=== PATIENT | male | born 1960 | race Caucasian/White ===

== ENCOUNTER 2023-01-18 13:54 | Emergency (ER) | payer MEDICARE, BC ==
[2023-01-18 15:18] LABS: Anisocytosis Slight; Basophils % (A) 0 %; Eosinophils # (A) 0.2 k/uL (0-0.7); Eosinophils % (A) 2 %; HCT 30.3 % (39.0-53.0); Hypochromasia Slight; Lymphocytes # (A) 0.7 k/uL (1.0-4.8); Lymphocytes % (A) 7 %; MCHC 33.1 g/dL (31.0-37.0); MCV 90.6 fL (80.0-100.0); Mean Platelet Volume 8.5; Monocytes # (A) 0.6 k/uL (0-1.0); Monocytes % (A) 7 %; Neutrophils # (A) 7.8 k/uL (1.3-7.7); Neutrophils % (A) 83 %; Platelet Count 136 k/uL (150-450); RBC 3.34 m/uL (4.30-5.90); RDW 16.1 % (11.5-15.5); WBC 9.4 k/uL (3.8-10.6)
--- NOTE | 2023-01-18 15:22 | ED ---
Abdominal Pain HPI - General Chief Complaint: Abdominal Pain Stated Complaint: constipation Time Seen by Provider: 01/18/23 14:30 Source: patient Mode of arrival: ambulatory Limitations: no limitations - History of Present Illness Initial Comments: 62-year-old male presents to ED with a chief complaint of rectal pain. Patient states has not had a bowel movement past 2 days. States that he feels stool in his rectum and tries to push but it just "will not come out". States that he stuck his finger up his butt and felt a large stool impaction. Denies abdominal pain, nausea, vomiting. Denies chest pain or shortness of breath. No other complaints. - Related Data Allergies Allergy/AdvReac Type Severity Reaction Status Date / Time No Known Allergies Allergy Verified 01/18/23 13:59 Review of Systems ROS Statement: Those systems with pertinent positive or pertinent negative responses have been documented in the HPI. ROS Other: All systems not noted in ROS Statement are negative. Past Medical History Past Medical History: Dialysis, Hypertension Additional Past Medical History / Comment(s): cx, constipation History of Any Multi-Drug Resistant Organisms: None Reported Past Surgical History: Cholecystectomy Additional Past Surgical History / Comment(s): cx sugery - lots of organs and surgery to remove cx. Past Psychological History: No Psychological Hx Reported Smoking Status: Never smoker Past Alcohol Use History: None Reported Past Drug Use History: None Reported General Exam Limitations: no limitations General appearance: alert, in no apparent distress Neck exam: Present: normal inspection Respiratory exam: Present: normal lung sounds bilaterally Cardiovascular Exam: Present: regular rate, normal rhythm GI/Abdominal exam: Present: soft (No Tenderness to palpation. No rebound guarding or rigidity.) Rectal exam: Present: hemorrhoids (Nonthrombosed external hemorrhoid.), other (Nonthrombosed external hemorrhoid. Digital examination did reveal a fecal impaction impaction rectal vault.) Neurological exam: Present: alert, oriented X3 Skin exam: Present: warm, dry Course Vital Signs 01/18/23 13:55 Temperature 98.3 F Pulse Rate 97 Respiratory 20 Rate Blood Pressure 143/86 O2 Sat by Pulse 100 Oximetry Medical Decision Making - Medical Decision Making Was pt. sent in by a medical professional or institution (, PA, HANDBAG FINISHER, urgent care, hospital, or [facility]...) When possible be specific @ -No Did you speak to anyone other than the patient for history (EMS, parent, family, police, friend...)? What history was obtained from this source @ -No Did you review nursing and triage notes (agree or disagree)? Why? @ -I reviewed and agree with nursing and triage notes Were old charts reviewed (outside hosp., previous admission, EMS record, old EKG, old radiological studies, urgent care reports/EKG's, [facility] records)? Report findings @ -No old charts were reviewed Differential Diagnosis (chest pain, altered mental status, abdominal pain women, abdominal pain men, vaginal bleeding, weakness, fever, dyspnea, syncope, headache, dizziness, GI bleed, back pain, seizure, CVA, palpatations, mental health, musculoskeletal)? @ -Differential Abdominal Pain Men: Appendicitis, cholecystitis, diverticulosis, ischemic bowel, pancreatitis, hepatitis, UTI, gastroenteritis, AAA, incarcerated hernia, bowel obstruction, constipation, inflammatory bowel, hepatitis, peptic ulcer disease, splenic infarction, perforated viscus, testicular torsion, this is not meant to be an all-inclusive list EKG interpreted by me (3pts min.). @ -None X-rays interpreted by me (1pt min.). @ -None done CT interpreted by me (1pt min.). @ -None done U/S interpreted by me (1pt. min.). @ -None done What testing was considered but not performed or refused? (CT, X-rays, U/S, labs )? Why? @ -None What meds were considered but not given or refused? Why? @ -None Did you discuss the management of the patient with other professionals (professionals i.e. , PA, HANDBAG FINISHER, lab, RT, psych nurse, director of social services, shell worker, teacher, principal gifts officer, porter sample case)? Give summary @ -No Was smoking cessation discussed for >3mins.? @ -No Was critical care preformed (if so, how long)? @ -No Were there social determinants of health that impacted care today? How? (Homelessness, low income, unemployed, alcoholism, drug addiction, transportation, low edu. Level, literacy, decrease access to med. care, group home, rehab)? @ -No Was there de-escalation of care discussed even if they declined (Discuss DNR or withdrawal of care, Hospice)? DNR status @ -No What co-morbidities impacted this encounter? (DM, HTN, Smoking, COPD, CAD, Cancer, CVA, ARF, Chemo, Hep., AIDS, mental health diagnosis, sleep apnea, morbid obesity)? @ -None Was patient admitted / discharged? Hospital course, mention meds given and route, prescriptions, significant lab abnormalities, going to OR and other pertinent info. @ -Discharge 62-year-old male presenting to the ED with a chief complaint of constipation and rectal pain. Laboratory studies are consistent with history of chronic kidney disease, Otherwise unremarkable. Exam showed fecal impaction nonthrombosed external hemorrhoid. Patient provided enema here. Patient successfully passage stool. Of note, patient was here 5 days ago after swallowing a plastic bottle cap. Patient did pass this during this bowel movement. Patient reports all symptoms resolved after this and would like to go home. Patient discharged home in stable condition. Discussed return precautions patient who verbalizes agreement. Undiagnosed new problem with uncertain prognosis? @ -No Drug Therapy requiring intensive monitoring for toxicity (Heparin, Nitro, Insulin, Cardizem)? @ -No Were any procedures done? @ -No Diagnosis/symptom? @ -Constipation/fecal impaction Acute, or Chronic, or Acute on Chronic? @ -Acute Uncomplicated (without systemic symptoms) or Complicated (systemic symptoms)? @ -Uncomplicated Side effects of treatment? @ -No Exacerbation, Progression, or Severe Exacerbation? @ -No Poses a threat to life or bodily function? How? (Chest pain, [place], [place], pneumonia, PE, COPD, DKA, ARF, appy, cholecystitis, CVA, Diverticulitis, Homicidal, Suicidal, threat to staff... and all critical care pts) @ -No - Lab Data Result diagrams: 01/18/23 15:06 01/18/23 15:06 Lab Results 01/18/23 01/18/23 Range/Units 15:06 15:06 WBC 9.4 (3.8-10.6) k/uL RBC 3.34 L (4.30-5.90) m/uL Hgb 10.0 L (13.0-17.5) gm/dL Hct 30.3 L (39.0-53.0) % MCV 90.6 (80.0-100.0) fL MCH 30.0 (25.0-35.0) pg MCHC 33.1 (31.0-37.0) g/dL RDW 16.1 H (11.5-15.5) % Plt Count 136 L (150-450) k/uL MPV 8.5 Neutrophils % 83 % Lymphocytes % 7 % Monocytes % 7 % Eosinophils % 2 % Basophils % 0 % Neutrophils # 7.8 H (1.3-7.7) k/uL Lymphocytes # 0.7 L (1.0-4.8) k/uL Monocytes # 0.6 (0-1.0) k/uL Eosinophils # 0.2 (0-0.7) k/uL Basophils # 0.0 (0-0.2) k/uL Hypochromasia Slight Anisocytosis Slight Sodium 134 L (137-145) mmol/L Potassium 4.0 (3.5-5.1) mmol/L Chloride 92 L (98-107) mmol/L Carbon Dioxide 34 H (22-30) mmol/L Anion Gap 8 mmol/L BUN 17 (9-20) mg/dL Creatinine 4.71 H (0.66-1.25) mg/dL Est GFR (CKD-EPI)AfAm 14 (>60 ml/min/1.73 sqM) Est GFR (CKD-EPI)NonAf 12 (>60 ml/min/1.73 sqM) Glucose 81 (74-99) mg/dL Calcium 9.5 (8.4-10.2) mg/dL Total Bilirubin 0.9 (0.2-1.3) mg/dL AST 15 L (17-59) U/L ALT 11 (4-49) U/L Alkaline Phosphatase 64 (38-126) U/L Total Protein 6.2 L (6.3-8.2) g/dL Albumin 3.6 (3.5-5.0) g/dL Amylase <30 L (30-110) U/L Lipase 80 (23-300) U/L Disposition Clinical Impression: Fecal impaction in rectum Disposition: HOME SELF-CARE Condition: Good Instructions (If sedation given, give patient instructions): Constipation (ED), High Fiber Diet (ED) Additional Instructions: Please return to the Emergency Department if symptoms worsen or any other concerns. Is patient prescribed a controlled substance at d/c from ED?: No Referrals: None,Stated [Primary Care Provider] - 1-2 days Time of Disposition: 16:25
[2023-01-18 15:32] LABS: ALT 11 U/L (4-49); AST 15 U/L (17-59); African American GFR (CKD) 14 (>60 ml/min/1.73 sqM); Albumin 3.6 g/dL (3.5-5.0); Alkaline Phosphatase 64 U/L (38-126); Amylase <30 U/L (30-110); Anion Gap 8 mmol/L; Blood Urea Nitrogen 17 mg/dL (9-20); Calcium 9.5 mg/dL (8.4-10.2); Carbon Dioxide 34 mmol/L (22-30); Chloride 92 mmol/L (98-107); Glucose 81 mg/dL (74-99); Lipase 80 U/L (23-300); Non-African American GFR(CKD) 12 (>60 ml/min/1.73 sqM); Sodium 134 mmol/L (137-145); Total Bilirubin 0.9 mg/dL (0.2-1.3); Total Protein 6.2 g/dL (6.3-8.2)
[2023-01-18 15:33] VITALS: BP 143/86; PULSE 97; RESP 20; TEMP 98.3
== END 2023-01-18 16:49 | disposition home or self-care (01) ==
LOC: EC 13:54
DX: K56.41 Fecal impaction (principal); I10 Essential (primary) hypertension; Z90.49 Acquired absence of other specified parts of digestive tract; Z99.2 Dependence on renal dialysis
CPT/HCPCS: 36415; 80053; 82150; 83690; 85025; 99284

== ENCOUNTER 2023-03-04 14:42 | Emergency (ER) | payer MEDICARE ==
[2023-03-04 15:11] VITALS: RESP 16; TEMP 98.4
[2023-03-04 15:25] LABS: Anisocytosis Slight; Basophils % (A) 0 %; Eosinophils # (A) 0.1 k/uL (0-0.7); Eosinophils % (A) 2 %; HCT 25.9 % (39.0-53.0); HGB 8.6 gm/dL (13.0-17.5); Hypochromasia Slight; Lymphocytes # (A) 0.6 k/uL (1.0-4.8); Lymphocytes % (A) 9 %; MCH 31.3 pg (25.0-35.0); MCHC 33.1 g/dL (31.0-37.0); MCV 94.5 fL (80.0-100.0); Mean Platelet Volume 8.1; Monocytes # (A) 0.5 k/uL (0-1.0); Monocytes % (A) 8 %; Neutrophils # (A) 5.6 k/uL (1.3-7.7); Neutrophils % (A) 80 %; Platelet Count 110 k/uL (150-450); RBC 2.74 m/uL (4.30-5.90); RDW 17.6 % (11.5-15.5)
[2023-03-04 15:34] VITALS: PULSE 86
[2023-03-04 15:36] LABS: ALT 9 U/L (4-49); AST 16 U/L (17-59); African American GFR (CKD) 19 (>60 ml/min/1.73 sqM); Albumin 3.8 g/dL (3.5-5.0); Alkaline Phosphatase 66 U/L (38-126); Blood Urea Nitrogen 19 mg/dL (9-20); Calcium 9.4 mg/dL (8.4-10.2); Chloride 90 mmol/L (98-107); Glucose 86 mg/dL (74-99); Magnesium 2.1 mg/dL (1.6-2.3); Non-African American GFR(CKD) 17 (>60 ml/min/1.73 sqM); Phosphorus 3.2 mg/dL (2.5-4.5); Potassium 4.1 mmol/L (3.5-5.1); Sodium 138 mmol/L (137-145); Total Bilirubin 0.9 mg/dL (0.2-1.3); Total Protein 6.4 g/dL (6.3-8.2)
[2023-03-04 15:42] LABS: Anion Gap 12 mmol/L
--- NOTE | 2023-03-04 15:49 | XR ---
EXAMINATION TYPE: XR chest 2V DATE OF EXAM: 03/04/2023 3:44 PM COMPARISON: Acute abdominal series 01/13/2023 TECHNIQUE: XR chest 2V Frontal and lateral views of the chest. CLINICAL INDICATION:Male, 62 years old with history of dysrhythmia; FINDINGS: Lungs/Pleura: Blunting of the left costophrenic angle. No focal consolidation or pneumothorax. Pulmonary vascularity: Pulmonary vascular congestion. Heart/mediastinum: Cardiomediastinal silhouette is prominent in size. Musculoskeletal: No acute osseous pathology. Other: Residual high-density material within the colon possibly prior enteric contrast. IMPRESSION: Trace right and small left pleural effusions with atelectasis. Mild pulmonary vascular congestion.
[2023-03-04 15:50] LABS: Carbon Dioxide 36 mmol/L (22-30)
--- NOTE | 2023-03-04 16:11 | ED ---
Arrhythmia/Palpitations HPI - General Chief Complaint: Arrhythmia/Palpitations Stated Complaint: Tachycardia Time Seen by Provider: 03/04/23 14:50 Source: patient Mode of arrival: EMS Limitations: no limitations - History of Present Illness Initial Comments: 62 year old male presents to ED with tachycardia. Patient was finishing up dialysis when he had palpitations. His vitals were taken and HR found to be in the 140-160s. HE felt as if they abdoul too much fluid off of him so he asked them to flush him back. He states when they did, his symptoms resolved. Patient did not want to come to the hospital but it was recommended. EMS found the patient to have a normal sinus rhythm. Patient denies history of irregular heart rhythms. He denies having chest pain. - Related Data Allergies Allergy/AdvReac Type Severity Reaction Status Date / Time No Known Allergies Allergy Verified 01/18/23 13:59 Review of Systems ROS Statement: Those systems with pertinent positive or pertinent negative responses have been documented in the HPI. ROS Other: All systems not noted in ROS Statement are negative. Past Medical History Past Medical History: Dialysis, Hypertension, Renal Disease Additional Past Medical History / Comment(s): cx, constipation History of Any Multi-Drug Resistant Organisms: None Reported Past Surgical History: Bowel Resection, Cholecystectomy Additional Past Surgical History / Comment(s): cx sugery - lots of organs and surgery to remove cx. nephrectomy , cystectomy. Past Psychological History: No Psychological Hx Reported Smoking Status: Never smoker Past Alcohol Use History: None Reported Past Drug Use History: None Reported, Marijuana General Exam Limitations: no limitations General appearance: alert, in no apparent distress Head exam: Present: atraumatic, normocephalic, normal inspection Eye exam: Present: normal appearance, PERRL, EOMI. Absent: scleral icterus, conjunctival injection, periorbital swelling ENT exam: Present: normal exam, mucous membranes moist Neck exam: Present: normal inspection. Absent: tenderness, meningismus, lymphadenopathy Respiratory exam: Present: normal lung sounds bilaterally. Absent: respiratory distress, wheezes, rales, rhonchi, stridor Cardiovascular Exam: Present: regular rate, normal rhythm, normal heart sounds. Absent: systolic murmur, diastolic murmur, rubs, gallop, clicks GI/Abdominal exam: Present: soft, normal bowel sounds. Absent: distended, tenderness, guarding, rebound, rigid Extremities exam: Present: full ROM, normal capillary refill, other (dialysis fistula rue with cannulas still in place). Absent: tenderness, pedal edema, joint swelling, calf tenderness Back exam: Present: normal inspection Neurological exam: Present: alert, oriented X3, CN II-XII intact Psychiatric exam: Present: normal affect, normal mood Skin exam: Present: warm, dry, intact, normal color. Absent: rash Course Vital Signs 03/04/23 03/04/23 03/04/23 14:48 14:54 15:26 Temperature 98.4 F Pulse Rate 82 85 Pulse Rate [ 86 Side Boss ] Respiratory 16 16 Rate Blood Pressure 170/96 179/96 O2 Sat by Pulse 98 98 Oximetry 03/04/23 17:04 Temperature Pulse Rate 86 Pulse Rate [ Side Boss ] Respiratory 16 Rate Blood Pressure 160/106 O2 Sat by Pulse 98 Oximetry Medical Decision Making - Medical Decision Making Was pt. sent in by a medical professional or institution (, PA, LEVERMAN, urgent care, hospital, or chcf...) When possible be specific @ -dialysis clinic Did you speak to anyone other than the patient for history (EMS, parent, family, police, friend...)? What history was obtained from this source @ -EMS Did you review nursing and triage notes (agree or disagree)? Why? @ -I reviewed and agree with nursing and triage notes Were old charts reviewed (outside hosp., previous admission, EMS record, old EKG, old radiological studies, urgent care reports/EKG's, [facility] records)? Report findings @ -No Differential Diagnosis (chest pain, altered mental status, abdominal pain women, abdominal pain men, vaginal bleeding, weakness, fever, dyspnea, syncope, headache, dizziness, GI bleed, back pain, seizure, CVA, palpatations, mental health, musculoskeletal)? @ -svt, sinus tachycardia, afib, aflutter, vtach EKG interpreted by me (3pts min.). @ -yes and demonstrates sinus rhythm with rate of 82. RI interval 181. QRS 106. QTC of 423. No acute segment elevations or depressions X-rays interpreted by me (1pt min.). @ -yes, no acute process CT interpreted by me (1pt min.). @ -None done U/S interpreted by me (1pt. min.). @ -none done What testing was considered but not performed or refused? (CT, X-rays, U/S, labs)? Why? @ -none What meds were considered but not given or refused? Why? @ -None Did you discuss the management of the patient with other professionals (professionals i.e. , PA, LEVERMAN, lab, RT, psych nurse, social media intern, mud jack operator, teacher, loans officer, case resource manager)? Give summary @ -No Was smoking cessation discussed for >3mins.? @ -No Was critical care preformed (if so, how long)? @ -No Were there social determinants of health that impacted care today? How? (Homelessness, low income, unemployed, alcoholism, drug addiction, transportation, low edu. Level, literacy, decrease access to med. care, halfway, rehab)? @ -No Was there de-escalation of care discussed even if they declined (Discuss DNR or withdrawal of care, Hospice)? DNR status @ -No What co-morbidities impacted this encounter? (DM, HTN, Smoking, COPD, CAD, Cancer, CVA, ARF, Chemo, Hep., AIDS, mental health diagnosis, sleep apnea, morbid obesity)? @ -esrd on hd Was patient admitted / discharged? Hospital course, mention meds given and route, prescriptions, significant lab abnormalities, going to OR and other pe rtinent info. @ -Discharged, labs negative. offered admission for monitoring but patient adamantly wants to go home. Undiagnosed new problem with uncertain prognosis? @ -yes Drug Therapy requiring intensive monitoring for toxicity (Heparin, Nitro, Insulin, Cardizem)? @ -No Were any procedures done? @ -No Diagnosis/symptom? @ -acute palpitations, esrd on hd Acute, or Chronic, or Acute on Chronic? @ -acute Uncomplicated (without systemic symptoms) or Complicated (systemic symptoms)? @ -complicated Side effects of treatment? @ -No Exacerbation, Progression, or Severe Exacerbation? @ -No Poses a threat to life or bodily function? How? (Chest pain, [place], [place], pneumonia, PE, COPD, DKA, ARF, appy, cholecystitis, CVA, Diverticulitis, Homicidal, Suicidal, threat to staff... and all critical care pts) @ -Low likelihood - Lab Data Result diagrams: 03/04/23 14:59 03/04/23 14:59 Lab Results 03/04/23 03/04/23 03/04/23 Range/Units 14:59 14:59 14:59 WBC 7.0 (3.8-10.6) k/uL RBC 2.74 L (4.30-5.90) m/uL Hgb 8.6 L (13.0-17.5) gm/dL Hct 25.9 L (39.0-53.0) % MCV 94.5 (80.0-100.0) fL MCH 31.3 (25.0-35.0) pg MCHC 33.1 (31.0-37.0) g/dL RDW 17.6 H (11.5-15.5) % Plt Count 110 L (150-450) k/uL MPV 8.1 Neutrophils % 80 % Lymphocytes % 9 % Monocytes % 8 % Eosinophils % 2 % Basophils % 0 % Neutrophils # 5.6 (1.3-7.7) k/uL Lymphocytes # 0.6 L (1.0-4.8) k/uL Monocytes # 0.5 (0-1.0) k/uL Eosinophils # 0.1 (0-0.7) k/uL Basophils # 0.0 (0-0.2) k/uL Hypochromasia Slight Anisocytosis Slight PT 11.0 (10.0-12.5) sec INR 1.0 (<1.2) APTT 24.0 (22.0-30.0) sec Sodium 138 (137-145) mmol/L Potassium 4.1 (3.5-5.1) mmol/L Chloride 90 L (98-107) mmol/L Carbon Dioxide 36 H (22-30) mmol/L Anion Gap 12 mmol/L BUN 19 (9-20) mg/dL Creatinine 3.65 H (0.66-1.25) mg/dL Est GFR (CKD-EPI)AfAm 19 (>60 ml/min/1.73 sqM) Est GFR (CKD-EPI)NonAf 17 (>60 ml/min/1.73 sqM) Glucose 86 (74-99) mg/dL Calcium 9.4 (8.4-10.2) mg/dL Phosphorus 3.2 (2.5-4.5) mg/dL Magnesium 2.1 (1.6-2.3) mg/dL Total Bilirubin 0.9 (0.2-1.3) mg/dL AST 16 L (17-59) U/L ALT 9 (4-49) U/L Alkaline Phosphatase 66 (38-126) U/L Troponin I (0.000-0.034) ng/mL Total Protein 6.4 (6.3-8.2) g/dL Albumin 3.8 (3.5-5.0) g/dL 03/04/23 Range/Units 14:59 WBC (3.8-10.6) k/uL RBC (4.30-5.90) m/uL Hgb (13.0-17.5) gm/dL Hct (39.0-53.0) % MCV (80.0-100.0) fL MCH (25.0-35.0) pg MCHC (31.0-37.0) g/dL RDW (11.5-15.5) % Plt Count (150-450) k/uL MPV Neutrophils % % Lymphocytes % % Monocytes % % Eosinophils % % Basophils % % Neutrophils # (1.3-7.7) k/uL Lymphocytes # (1.0-4.8) k/uL Monocytes # (0-1.0) k/uL Eosinophils # (0-0.7) k/uL Basophils # (0-0.2) k/uL Hypochromasia Anisocytosis PT (10.0-12.5) sec INR (<1.2) APTT (22.0-30.0) sec Sodium (137-145) mmol/L Potassium (3.5-5.1) mmol/L Chloride (98-107) mmol/L Carbon Dioxide (22-30) mmol/L Anion Gap mmol/L BUN (9-20) mg/dL Creatinine (0.66-1.25) mg/dL Est GFR (CKD-EPI)AfAm (>60 ml/min/1.73 sqM) Est GFR (CKD-EPI)NonAf (>60 ml/min/1.73 sqM) Glucose (74-99) mg/dL Calcium (8.4-10.2) mg/dL Phosphorus (2.5-4.5) mg/dL Magnesium (1.6-2.3) mg/dL Total Bilirubin (0.2-1.3) mg/dL AST (17-59) U/L ALT (4-49) U/L Alkaline Phosphatase (38-126) U/L Troponin I 0.020 (0.000-0.034) ng/mL Total Protein (6.3-8.2) g/dL Albumin (3.5-5.0) g/dL Disposition Clinical Impression: Palpitations Disposition: HOME SELF-CARE Condition: Stable Instructions (If sedation given, give patient instructions): Heart Palpitations (ED) Additional Instructions: Return to your regularly scheduled dialysis. Return for any new or worsening symptoms Is patient prescribed a controlled substance at d/c from ED?: No Referrals: Danielle Rodriguez DO [Primary Care Provider] - 1-2 days Time of Disposition: 16:10
[2023-03-04 17:22] VITALS: BP 160/106
== END 2023-03-04 17:20 | disposition home or self-care (01) ==
LOC: EC 14:42
DX: R00.2 Palpitations (principal); I12.0 Hypertensive chronic kidney disease with stage 5 chronic kidney disease or end stage renal disease; N18.6 End stage renal disease; F12.90 Cannabis use, unspecified, uncomplicated; Z99.2 Dependence on renal dialysis
CPT/HCPCS: 36415; 71046; 80053; 83735; 84100; 84484; 85025; 85610; 85730; 93005; 99285

== ENCOUNTER 2023-04-30 08:33 | Emergency (ER) | payer MEDICARE, BC ==
[2023-04-30 09:06] VITALS: TEMP 98.2
--- NOTE | 2023-04-30 09:25 | ED ---
General Adult HPI - General Chief complaint: Shortness of Breath Stated complaint: SOB Time Seen by Provider: 04/30/23 08:48 Source: patient, RN notes reviewed Mode of arrival: ambulatory Limitations: no limitations - History of Present Illness Initial comments: 62-year-old male presents emergency Department with chief complaint of cough. Patient states that he's had increasing cough last week or more. He states he initially about is from his blood pressure or blood pressure meds. He states that he is tried some medications with no resolution of his symptoms. Patient states that he has gallbladder out March he did have some fluid left in [facility] after but states that he goes to dialysis 3 times a week has not missed any days and states that he's had no significant fluid removed. Patient denies any reports fever he states that he gets worse when he lays down he states he felt like he was suffocating from something in his lungs. - Related Data Previous Rx's Medication Instructions Recorded Azithromycin [Zithromax Z Pack] 0 tab PO DIRECTED #6 tab 04/30/23 Allergies Allergy/AdvReac Type Severity Reaction Status Date / Time No Known Allergies Allergy Verified 04/30/23 08:47 Review of Systems ROS Statement: Those systems with pertinent positive or pertinent negative responses have been documented in the HPI. ROS Other: All systems not noted in ROS Statement are negative. Past Medical History Past Medical History: Dialysis, Hypertension, Renal Disease Additional Past Medical History / Comment(s): cx, constipation History of Any Multi-Drug Resistant Organisms: None Reported Past Surgical History: Bowel Resection, Cholecystectomy Additional Past Surgical History / Comment(s): cx sugery - lots of organs and surgery to remove cx. nephrectomy , cystectomy. Past Psychological History: No Psychological Hx Reported Smoking Status: Never smoker Past Alcohol Use History: None Reported Past Drug Use History: None Reported, Marijuana General Exam Limitations: no limitations General appearance: alert, in no apparent distress Head exam: Present: atraumatic, normocephalic, normal inspection Eye exam: Present: normal appearance, PERRL, EOMI. Absent: scleral icterus, conjunctival injection, periorbital swelling ENT exam: Present: normal exam, normal oropharynx, mucous membranes moist, TM's normal bilaterally Neck exam: Present: normal inspection, full ROM. Absent: tenderness, meningismus, lymphadenopathy Respiratory exam: Present: normal lung sounds bilaterally. Absent: respiratory distress, wheezes, rales, rhonchi, stridor Cardiovascular Exam: Present: regular rate, normal rhythm, normal heart sounds. Absent: systolic murmur, diastolic murmur, rubs, gallop, clicks Course Vital Signs 04/30/23 04/30/23 04/30/23 08:43 09:31 10:47 Temperature 98.2 F 98.2 F Pulse Rate 88 84 Respiratory 20 18 18 Rate Blood Pressure 172/98 161/97 O2 Sat by Pulse 96 95 Oximetry 04/30/23 11:45 Temperature 98.2 F Pulse Rate 82 Respiratory 18 Rate Blood Pressure 157/91 O2 Sat by Pulse 96 Oximetry Medical Decision Making - Medical Decision Making Was pt. sent in by a medical professional or institution (, PA, GREEN END DEPARTMENT SUPERVISOR, urgent care, hospital, or [facility]...) When possible be specific @ -No Did you speak to anyone other than the patient for history (EMS, parent, family, police, friend...)? What history was obtained from this source @ -No Did you review nursing and triage notes (agree or disagree)? Why? @ -I reviewed and agree with nursing and triage notes Were old charts reviewed (outside hosp., previous admission, EMS record, old EKG, old radiological studies, urgent care reports/EKG's, [facility] records)? Report findings @ -Reviewed prior laboratory studies Differential Diagnosis (chest pain, altered mental status, abdominal pain women, abdominal pain men, vaginal bleeding, weakness, fever, dyspnea, syncope, headache, dizziness, GI bleed, back pain, seizure, CVA, palpatations, mental health, musculoskeletal)? @ -COVID 19, RSV, influenza, pneumonia, acute bronchitis, URI, this list is not all inclusive EKG interpreted by me (3pts min.). @ -None X-rays interpreted by me (1pt min.). @ -Chest x-ray shows trace pleural effusion, evidence of atypical pneumonia CT interpreted by me (1pt min.). @ -None done U/S interpreted by me (1pt. min.). @ -None done What testing was considered but not performed or refused? (CT, X-rays, U/S, labs)? Why? @ -None What meds were considered but not given or refused? Why? @ -None Did you discuss the management of the patient with other professionals (professionals i.e. , PA, GREEN END DEPARTMENT SUPERVISOR, lab, RT, psych nurse, social work professor, windows systems administrator, teacher, retail loan officer, cyanide case hardener)? Give summary @ -No Was smoking cessation discussed for >3mins.? @ -No Was critical care preformed (if so, how long)? @ -No Were there social determinants of health that impacted care today? How? (Homelessness, low income, unemployed, alcoholism, drug addiction, transportation, low edu. Level, literacy, decrease access to med. care, long term, rehab)? @ -No Was there de-escalation of care discussed even if they declined (Discuss DNR or withdrawal of care, Hospice)? DNR status @ -No What co-morbidities impacted this encounter? (DM, HTN, Smoking, COPD, CAD, Cancer, CVA, ARF, Chemo, Hep., AIDS, mental health diagnosis, sleep apnea, mor bid obesity)? @ -[Renal disease Was patient admitted / discharged? Hospital course, mention meds given and route, prescriptions, significant lab abnormalities, going to OR and other pertinent info. @ -Discharge patient felt comfortable discharged after Rocephin, started on azithromycin. Patient is scheduled for dialysis tomorrow patient has upper limits of potassium. Return parameters were discussed. Undiagnosed new problem with uncertain prognosis? @ -No Drug Therapy requiring intensive monitoring for toxicity (Heparin, Nitro, Insulin, Cardizem)? @ -No Were any procedures done? @ -No Diagnosis/symptom? @ -[Atypical pneumonia Acute, or Chronic, or Acute on Chronic? @ -[Acute Uncomplicated (without systemic symptoms) or Complicated (systemic symptoms)? @ -complicated Side effects of treatment? @ -No Exacerbation, Progression, or Severe Exacerbation? @ -No Poses a threat to life or bodily function? How? (Chest pain, [place], [place], pneumonia, PE, COPD, DKA, ARF, appy, cholecystitis, CVA, Diverticulitis, Homicidal, Suicidal, threat to staff... and all critical care pts) @ -Yes patient has pneumonia - Lab Data Result diagrams: 04/30/23 09:04/30/23 09:27 Lab Results 04/30/23 04/30/23 04/30/23 Range/Units : 09: 09: WBC 7.3 (3.8-10.6) k/uL RBC 3.84 L (4.30-5.90) m/uL Hgb 11.7 L D (13.0-17.5) gm/dL Hct 35.2 L (39.0-53.0) % MCV 91.7 (80.0-100.0) fL MCH 30.5 (25.0-35.0) pg MCHC 33.2 (31.0-37.0) g/dL RDW 15.2 (11.5-15.5) % Plt Count 128 L (150-450) k/uL MPV 8.5 Neutrophils % 78 % Lymphocytes % 11 % Monocytes % 6 % Eosinophils % 3 % Basophils % 1 % Neutrophils # 5.7 (1.3-7.7) k/uL Lymphocytes # 0.8 L (1.0-4.8) k/uL Monocytes # 0.5 (0-1.0) k/uL Eosinophils # 0.2 (0-0.7) k/uL Basophils # 0.0 (0-0.2) k/uL Sodium 140 (137-145) mmol/L Potassium 5.2 H (3.5-5.1) mmol/L Chloride 92 L (98-107) mmol/L Carbon Dioxide 31 H (22-30) mmol/L Anion Gap 17 mmol/L BUN 52 H (9-20) mg/dL Creatinine 7.26 H* (0.66-1.25) mg/dL Est GFR (CKD-EPI)AfAm 8 (>60 ml/min/1.73 sqM) Est GFR (CKD-EPI)NonAf 7 (>60 ml/min/1.73 sqM) Glucose 72 L (74-99) mg/dL Calcium 10.5 H (8.4-10.2) mg/dL Total Bilirubin 1.0 (0.2-1.3) mg/dL AST 16 L (17-59) U/L ALT 12 (4-49) U/L Alkaline Phosphatase 66 (38-126) U/L Total Protein 6.6 (6.3-8.2) g/dL Albumin 4.2 (3.5-5.0) g/dL Influenza Type A (PCR) Not Detected (Not Detectd) Influenza Type B (PCR) Not Detected (Not Detectd) RSV (PCR) Not Detected (Not Detectd) SARS-CoV-2 (PCR) Not Detected (Not Detectd) Disposition Clinical Impression: Atypical pneumonia, Pleural effusion, ESRD (end stage renal disease) Disposition: HOME SELF-CARE Condition: Stable Instructions (If sedation given, give patient instructions): Pneumonia (ED) Additional Instructions: Please return to the Emergency Department if symptoms worsen or any other concerns. Prescriptions: Azithromycin [Zithromax Z Pack] 0 tab PO DIRECTED #6 tab Is patient prescribed a controlled substance at d/c from ED?: No Referrals: Danielle Rodriguez DO [Primary Care Provider] - 1-2 days Time of Disposition: 11:08
[2023-04-30 09:38] LABS: Basophils % (A) 1 %; Eosinophils # (A) 0.2 k/uL (0-0.7); Eosinophils % (A) 3 %; HCT 35.2 % (39.0-53.0); Lymphocytes # (A) 0.8 k/uL (1.0-4.8); Lymphocytes % (A) 11 %; MCH 30.5 pg (25.0-35.0); MCHC 33.2 g/dL (31.0-37.0); MCV 91.7 fL (80.0-100.0); Mean Platelet Volume 8.5; Monocytes # (A) 0.5 k/uL (0-1.0); Monocytes % (A) 6 %; Neutrophils # (A) 5.7 k/uL (1.3-7.7); Neutrophils % (A) 78 %; Platelet Count 128 k/uL (150-450); RBC 3.84 m/uL (4.30-5.90); RDW 15.2 % (11.5-15.5); WBC 7.3 k/uL (3.8-10.6)
[2023-04-30 09:53] VITALS: RESP 18
[2023-04-30 09:54] LABS: HGB 11.7 gm/dL (13.0-17.5)
--- NOTE | 2023-04-30 09:59 | XR ---
EXAMINATION TYPE: XR chest 2V DATE OF EXAM: 04/30/2023 COMPARISON: 03/04/2023 HISTORY: 62-year-old male with cough and shortness of breath TECHNIQUE: PA and lateral views FINDINGS: Heart upper limits of normal size. Diffuse interstitial density. Small effusions, left greater than r ight. Patchy interstitial changes mid and lower lungs especially on the right. IMPRESSION: Borderline heart size and patchy interstitial changes. Small left greater than right pleural effusion s with adjacent atelectasis and/or consolidation. Correlate for possible atypical pneumonias and/or C HF with mild interstitial edema.
[2023-04-30 10:26] LABS: ALT 12 U/L (4-49); AST 16 U/L (17-59); African American GFR (CKD) 8 (>60 ml/min/1.73 sqM); Albumin 4.2 g/dL (3.5-5.0); Alkaline Phosphatase 66 U/L (38-126); Anion Gap 17 mmol/L; Blood Urea Nitrogen 52 mg/dL (9-20); Calcium 10.5 mg/dL (8.4-10.2); Carbon Dioxide 31 mmol/L (22-30); Chloride 92 mmol/L (98-107); Glucose 72 mg/dL (74-99); Non-African American GFR(CKD) 7 (>60 ml/min/1.73 sqM); Potassium 5.2 mmol/L (3.5-5.1); Sodium 140 mmol/L (137-145); Total Protein 6.6 g/dL (6.3-8.2)
[2023-04-30] MEDS ORDERED: cefTRIAXone IN SWFI 1,000 MG/10 ML SYRINGE IVP STA (11:06)
[2023-04-30 11:52] VITALS: BP 157/91; PULSE 82
== END 2023-04-30 11:45 | disposition home or self-care (01) ==
LOC: EC 08:33
DX: J18.9 Pneumonia, unspecified organism (principal); J90 Pleural effusion, not elsewhere classified; I12.0 Hypertensive chronic kidney disease with stage 5 chronic kidney disease or end stage renal disease; N18.6 End stage renal disease; F12.90 Cannabis use, unspecified, uncomplicated; Z20.822 Contact with and (suspected) exposure to COVID-19; Z99.2 Dependence on renal dialysis
CPT/HCPCS: 36415; 80053; 85025; 87636; 71046; 99285; 96374; J0696

== ENCOUNTER → 2023-05-16 | Outpatient (CLI) | payer MEDICARE ==
[2023-05-17 02:08] LABS: HCT 33.9 % (39.6-50.0); HGB 10.5 g/dL (13.0-17.0); MCH 29.3 pg (27.0-32.0); MCV 94.7 FL (80.0-97.0); Mean Platelet Volume 10.8 FL (9.5-12.2); NRBC Per 100 WBC 0 X 10*3/uL (0.00-0.01); Platelet Count 160 X 10*3/uL (140-440); RBC 3.58 X 10*6/uL (4.40-5.60); RDW 16.8 % (11.5-14.5); WBC 6.81 X 10*3/uL (4.50-10.00)
[2023-05-17 02:28] LABS: Blood Urea Nitrogen 26.8 mg/dL (9.0-27.0); Carbon Dioxide 28.4 mmol/L (21.6-31.8); Chloride 98 mmol/L (96-109); Potassium 4.3 mmol/L (3.5-5.5); Sodium 142 mmol/L (135-145)
== END | disposition home or self-care (01) ==
LOC: LABPAT 12:02
PROVIDERS: ATTEND Student in an Organized Health Care Education/Training Program
DX: Z01.812 Encounter for preprocedural laboratory examination (principal); I25.10 Atherosclerotic heart disease of native coronary artery without angina pectoris
CPT/HCPCS: 80051; 82565; 84520; 85027

== ENCOUNTER 2023-05-21 11:25 | Day surgery (SDC) | payer MEDICARE, BC ==
[~2023-05-21 11:25] MED LIST: ALPRAZolam 0.25 MG TAB PO PRN; ALPRAZolam 0.5 MG TAB PO PRN; ASPIRIN 325 MG TAB PO ONE; HEPARIN SODIUM,PORCINE (1 ML) 2,500 UNIT in SODIUM CHLORIDE 0.9% 250 ML IRRIGATION PRN; HEPARIN SODIUM,PORCINE 10,000 UNIT in SODIUM CHLORIDE 0.9% 1,000 ML IRRIGATION PRN; NITROGLYCERIN SL TABS 0.4 MG TAB SUBLINGUAL PRN; SODIUM CHLORIDE 0.9% 1,000 ML in EMPTY BAG 1 BAG IV SCH
[2023-05-21] MEDS ORDERED: SODIUM CHLORIDE 0.9% 1,000 ML IV ONE (11:49)
[2023-05-21 12:14] VITALS: RESP 16; TEMP 98.6
[2023-05-21] MEDS ORDERED: VERAPAMIL 2.5 MG/ML 2 ML AMP ONE (12:19)
[2023-05-21] MEDS ORDERED: LIDOCAINE 1% INJ 10MG/ML (20 ML MDV) ONE (12:19)
[2023-05-21] MEDS ORDERED: fentaNYL (PF) 50 MCG/ML 2 ML AMP ONE (12:36)
[2023-05-21] MEDS ORDERED: MIDAZOLAM 2 MG/2 ML VIAL IVP ONE ×2 (12:52→12:57)
[2023-05-21] MEDS: fentaNYL (PF) 50 MCG/1 ML VIAL IVP ONE ×2 (12:52→12:57)
[2023-05-21] MEDS ORDERED: LIDOCAINE 1% INJ 10MG/ML (20 ML MDV) SQ ONE (12:53)
[2023-05-21] MEDS ORDERED: IOPAMIDOL-370 100ML BTL INJ ONE (13:36)
[2023-05-21 13:41] LABS: O2 Sat Blood Gas 68.7 %
[2023-05-21 13:43] LABS: O2 Sat Blood Gas 64.2 %
[2023-05-21] MEDS ORDERED: RX INFO: IV CONTRAST WAS GIVEN 1 EACH MISC MISCELLANE PRN (13:43)
[2023-05-21 13:45] LABS: O2 Sat Blood Gas 68.8 %
[2023-05-21] MEDS ORDERED: SODIUM CHLORIDE 0.9% 1,000 ML IV SCH (13:45)
[2023-05-21 13:46] LABS: O2 Sat Blood Gas 82.9 %
[2023-05-21 17:12] VITALS: BP 160/90; PULSE 70
--- NOTE | 2023-05-21 17:19 | P.CARDCATH ---
Date of Procedure: 05/21/23 Description of Procedure: DIAGNOSTIC CORONARY ANGIOGRAPHY, RIGHT and LEFT HEART CATH REPORT PROCEDURES PERFORMED: Right heart cath Left heart catheterization Selective coronary angiography Moderate conscious sedation 46 mins Ultrasound assisted Right femoral vein access Ultrasound assisted Right common femoral access Right common femoral arteriogram Angioseal Closure INDICATION: Worsening cardiomyopathy and congestive heart failure Patient was seen in clinic as a new patient for increased worsening shortness of breath and fatigue. His echocardiogram showed an EF of 20% which was a new finding. He has a prior history of CAD status post PCI to mid LAD in 2020 at [facility]. He is a prior history of urethral cancer status post bilateral nephrectomy on hemodialysis Saturday. CONSENT: I have discussed the risks, benefits and alternative therapies for the above-mentioned procedure, sedation/analgesia and necessary blood product administration (if indicated, as they pertain to this patient). The patient has indicated understanding and acceptance of the risks and procedures discussed. Conscious Sedation: Patient's ECG, heart rate, blood pressure, pulse oximetry was monitored throughout the duration of procedure under the direct supervision. 3 mg Versed and 75 mg Fentanyl were used for induction of moderate conscious sedation. Total duration of 46 minutes. PROCEDURE:After the risks, benefits and alternatives of the above mentioned procedure explained in detail with the patient, informed consent was obtained. Patient was taken to the catheterization lab and prepped and draped in usual sterile fashion. Ultrasound was used to identify the right common femoral artery. 1% lidocaine was infiltrated over the right common femoral artery. Using ultrasound arterial access was obtained using micropuncture needle. A 6-Czech sheath was placed in the right radial artery using modified Seldinger technique. Ultrasound was used to identify the right femoral vein. 1% lidocaine was infiltrated over the right femoral vein. Ultrasound-assisted right femoral vein access was obtained using a micropuncture needle. A 7-Czech slender denies sheath was advanced into the femoral vein using modified Seldinger technique. A 7-Czech [place]-Chelsey catheter was advanced with a venous sheath. The balloon was inflated once it was an IVC. The catheter was advanced to reach the pulmonary capillary wedge position. Wedge pressures were obtained with inflated balloon. The balloon was deflated, PA pressures were obtained and thermodilution study was performed. Thermodilution study was not appropriate because of technical difficulty with the sensor. We received 1 reading which seemed to be appropriate. PA saturation sample was obtained. Thereafter the catheter was withdrawn to right ventricle and right atrium to obtain the pressures and blood samples to calculate the saturation. Femoral arterial sample was collected to calculate oxygen saturation. The [place]-Chelsey catheter was removed from the venous sheath J tipped wire was advanced under fluoroscopic guidance. Over the wire JL4 diagnostic catheter was advanced. Wire was removed, catheter was flushed and manipulated under fluoroscopy to selectively engaged the left coronary ostium. Left coronary angioplasty was performed in different angiographic projections. This catheter was exchanged for a JR4 diagnostic catheter over the wire. The catheter was flushed and manipulated to cross the aortic valve. LV pressures were obtained. Pullback was performed across aortic valve and catheter was manipulated to selectively engage the right coronary ostium under fluoroscopic guidance. Right coronary angiography was performed in different angiographic projections. Catheter was removed over the wire. Femoral sheath was flushed. Angioseal closure device was used to close the arteriotomy site. Appropriate patent hemostasis was achieved. The patient tolerated the procedure well. Patient was transported back to the post catheterization holding area in stable condition. Angiographic images were reviewed in detail. HEMODYNAMICS: Aortic Pressure: 145/85 mmHg. LV pressure: 148/10 mmHg. LVEDP 24 mmHg. RIGHT HEART CATH Mean RA pressure 10 mmHg RV pressure 47/10 mmHg, RVEDP 15 mmHg PA pressure 52/23 mmHg, mean PA pressure 40 mmHg Mean wedge pressure 25 mmHg Trans-pulmonary gradient 15 mmHg Pulmonary resistance 3 ivan unit Thermodilution cardiac output 5.14 L/m Thermodilution cardiac index 2.53 L/m/m RA sat 69% RV sat 69% PA sat 65% FA sat 98% Heart rate 77, BSA 2.03, hemoglobin 9.6 [place] cardiac output 6.6 L/m [place] cardiac index 3.25 L/m/m SELECTIVE CORONARY ARTERIOGRAPHY: LEFT MAIN: The left main is short which bifurcates into the LAD and circumflex. Left main appears angiographically normal. LEFT ANTERIOR DESCENDING CORONARY ARTERY: LAD is a large caliber vessel which wraps around to the apex. It has mild 20-30% disease at branching points of diagonal arteries. Diagonal artery is a medium caliber vessel which appears angiographically normal. There is a stent in mid LAD which appears patent. LEFT CIRCUMFLEX CORONARY ARTERY: It is dominant vessel. Left circumflex is a lar ge caliber vessel. it has mild tender 20% luminal irregularities. It gives rise to medium size OM branches which appears angiographically normal. Distally it gives rise to PDA and PL branches which appears angiographically normal RIGHT CORONARY ARTERY : Non dominant. RCA is small-caliber and gives rise to RV marginal branches which appears angiographically normal. IMPRESSION: Mild nonobstructive CAD Patent stent in mid LAD Nonischemic cardiomyopathy Biventricular failure with elevated LVEDP, wedge pressures and RA pressures Mixed pulmonary hypertension, likely croup to include 3 PLAN: Aggressive risk factor modification per most recent ACC/AHA guidelines. 75 cc fluids for 6 hours Discharge home in 6 hours Follow-up in the office in 1-2 weeks. Performing Physician Og Rojas MD
== END 2023-05-21 17:07 | disposition home or self-care (01) ==
LOC: CATHCVL 11:25
PROVIDERS: ATTEND Student in an Organized Health Care Education/Training Program
DX: I25.10 Atherosclerotic heart disease of native coronary artery without angina pectoris (principal); I42.0 Dilated cardiomyopathy; I50.82 Biventricular heart failure; I27.20 Pulmonary hypertension, unspecified; E78.5 Hyperlipidemia, unspecified; I12.0 Hypertensive chronic kidney disease with stage 5 chronic kidney disease or end stage renal disease; N18.6 End stage renal disease; Z79.82 Long term (current) use of aspirin; Z79.899 Other long term (current) drug therapy
CPT/HCPCS: 93460; 76937; 85018; 82810; 99152; 99153 ×2; C1760; C1769 ×2; C1894 ×2; J2250; J2001; Q9967; J3010

== ENCOUNTER → 2023-05-23 | Outpatient (CLI) | payer MEDICARE, BC ==
[2023-05-23 16:20] LABS: Albumin 4.2 g/dL (3.8-4.9); Protein, Total 6.4 g/dL (6.2-8.2)
[2023-05-24 12:32] LABS: Angiotensin-1 Converting Enz. 28 U/L (8-52)
[2023-05-24 19:32] LABS: Vitamin D, 1, 25-Dihydroxy 25 pg/mL (20 - 79)
== END | disposition home or self-care (01) ==
LOC: LABWHC1 11:05
PROVIDERS: ATTEND Internal Medicine
DX: E87.5 Hyperkalemia (principal)
CPT/HCPCS: 36415; 82164; 82652; 84165; 84443; 86334

== ENCOUNTER → 2023-06-18 | Outpatient (CLI) | payer MEDICARE, BC ==
--- NOTE | 2023-06-19 14:22 | NM ---
EXAMINATION TYPE: NM parathyroid w/ SPECT DATE OF EXAM: 06/18/2023 COMPARISON: NONE CLINICAL INDICATION: Male, 62 years old with history of hypercalcemia; TECHNIQUE: Following administration of 24.8 mCi Tc99m Sestamibi. Anterior projection images of the neck and ches t were obtained 10 minutes and 3 hours post injection. SPECT images of the neck and upper chest were obtained and reconstructed in three axes. FINDINGS: Thyroid tracer washout: Delayed images demonstrate near-complete tracer washout from the thyroid. Parathyroid uptake: None. The two-hour delayed images do not demonstrate any focal abnormal persisten t uptake in the region of the parathyroid glands to suggest parathyroid adenoma. Normal uptake: There is physiological tracer uptake in the salivary glands and thyroid gland. IMPRESSION: No scintigraphic evidence for parathyroid adenoma.
== END | disposition home or self-care (01) ==
LOC: RADNMMAIN 10:43
PROVIDERS: ATTEND Internal Medicine
DX: E83.52 Hypercalcemia (principal)
CPT/HCPCS: 78071; A9500

== ENCOUNTER → 2023-07-04 | Outpatient (CLI) | payer MEDICARE, BC ==
--- NOTE | 2023-07-04 16:28 | CT ---
EXAMINATION TYPE: CT ChestAbdPelvis wo con DATE OF EXAM: 07/04/2023 COMPARISON: None HISTORY: Bladder Ca CT DLP: 794.8 mGycm. Automated Exposure Control for Dose Reduction was Utilized. TECHNIQUE: CT scan of the thorax, abdomen and pelvis is performed without IV contrast. CT chest: There are 2, 3 - 4 mm right pulmonary nodules. . There is no airspace consolidation or abnormal inte rstitial density. There is a small left pleural effusion. There is no pneumothorax. There is mild aneurysmal dilatation of the ascending thoracic aorta which measures 4 cm. There is no mediastinal, hilar or axillary adenopathy. No focal osseous lesions are seen . CT abdomen and pelvis: There is surgical absence of gallbladder. There is no organomegaly involving the liver, pancreas, spleen or adrenal glands. There are surgical absence of the kidneys and urinary bladder. Caliber of the abdominal aorta is normal as no retroperitoneal adenopathy or hemorrhage The bowel loops are normal in caliber and no dilatation or obstruction. No inflammatory changes are i dentified in the bowel wall or mesentery. There is no free intraperitoneal air or fluid. There is no pelvic mass or adenopathy. The osseous structures are intact. IMPRESSION: 1. Small left pleural effusion. 2. 2 small 3-4 millimeter right pulmonary nodules. 3. Surgical absence of the urinary bladder and kidneys. 4. No evidence of metastatic disease within the abdomen or pelvis within the limitations of the exam which was performed without contrast material
== END | disposition home or self-care (01) ==
LOC: RADCTMAIN 15:14
PROVIDERS: ATTEND Urology
DX: J90 Pleural effusion, not elsewhere classified (principal); C67.9 Malignant neoplasm of bladder, unspecified; R91.8 Other nonspecific abnormal finding of lung field; Z90.6 Acquired absence of other parts of urinary tract; Z90.5 Acquired absence of kidney
CPT/HCPCS: 71250; 74176

== ENCOUNTER 2023-08-19 05:45 | Day surgery (SDC) | payer MEDICARE, BC ==
[~2023-08-19 05:45] MED LIST changes: -ALPRAZolam 0.25 MG TAB PO PRN; -ALPRAZolam 0.5 MG TAB PO PRN; -ASPIRIN 325 MG TAB PO ONE; -HEPARIN SODIUM,PORCINE (1 ML) 2,500 UNIT in SODIUM CHLORIDE 0.9% 250 ML IRRIGATION PRN; -HEPARIN SODIUM,PORCINE 10,000 UNIT in SODIUM CHLORIDE 0.9% 1,000 ML IRRIGATION PRN; +HYDROmorphone 0.5 MG/0.5 ML SYRINGE IVP PRN; +LIDOCAINE 1% (10MG/ML) FOR IV START INTRADERMA PRN; -NITROGLYCERIN SL TABS 0.4 MG TAB SUBLINGUAL PRN; -SODIUM CHLORIDE 0.9% 1,000 ML in EMPTY BAG 1 BAG IV SCH
[2023-08-19] MEDS: LACTATED RINGERS 1,000 ML IV SCH (06:21)
[2023-08-19] MEDS: DEXAMETHASONE SOD PHOSPHATE 4 MG/ML 1 ML VIAL IVP ONE (07:15)
[2023-08-19] MEDS: MIDAZOLAM 2 MG/2 ML VIAL IVP ONE (07:17)
[2023-08-19] MEDS: HEPARIN SODIUM,PORCINE 5,000 UNIT/ML 1 ML VIAL SQ PRN (07:25)
[2023-08-19] MEDS ORDERED: fentaNYL (PF) 50 MCG/ML 2 ML AMP ONE ×2 (07:32→13:18)
[2023-08-19] MEDS ORDERED: KETAMINE HCL IN 0.9 % NACL 50 MG/5 ML SYRINGE ONE (07:32)
[2023-08-19] MEDS ORDERED: ROPIVACAINE 5 MG/ML 30 ML VIAL ONE (07:32)
[2023-08-19] MEDS ORDERED: MIDAZOLAM 2 MG/2 ML VIAL ONE ×2 (07:32→13:18)
[2023-08-19] MEDS ORDERED: HEPARIN SODIUM,PORCINE 5,000 UNIT/ML 1 ML VIAL ONE (07:32)
[2023-08-19] MEDS ORDERED: GLYCOPYRROLATE 0.2 MG/ML 2 ML VIAL ONE (07:32)
[2023-08-19] MEDS ORDERED: PROPOFOL 10 MG/ML 20 ML VIAL IV ONE ×2 (07:32→13:18)
[2023-08-19] MEDS ORDERED: DEXAMETHASONE SOD PHOSPHATE 4 MG/ML 1 ML VIAL ONE (07:32)
--- NOTE | 2023-08-19 07:33 | P.ANPRN ---
Procedure Note - Anesthesia - Nerve Block Performed Right Supraclavicular Single Time Out Performed: Yes Date of Procedure: 08/19/23 Procedure Start Time: :17 Procedure Stop Time: : Location of Patient: PreOp Indication: Acute Post-Operative Pain, Analgesia, Requested by Surgeon Sedation Type: Sedate with meaningful contact maintained Preparation: Sterile Prep Position: Sitting Catheter: None Needle Types: Pajunk Needle Gauge: 21 Ultrasound used to visualize needle placement: Yes Ultrasound used to observe medication spread: Yes Injectate: 0.5% Ropivacaine (see comment for volume) (Ropiv 20ml) Blood Aspirated: No Pain Paresthesia on Injection Noted: No Resistance on Injection: Normal Image Stored and Saved: Yes Events: Uneventful and Well Tolerated
[2023-08-19] MEDS: ceFAZolin 2 GM in SODIUM CHLORIDE 0.9% 500 ML 500 ML IRRIGATION ONE (07:35)
[2023-08-19] MEDS: HEPARIN SODIUM,PORCINE (1 ML) 2,000 UNIT in SODIUM CHLORIDE 0.9% 500 ML 500 ML IRRIGATION ONE (07:35)
[2023-08-19] MEDS: LIDOCAINE 1% INJ 10MG/ML (20 ML MDV) SQ ONE ×2 (08:13)
[2023-08-19] MEDS: THROMBIN (BOVINE) 5,000 UNIT VIAL TOPICAL ONE (08:55)
[2023-08-19] MEDS: HEPARIN SODIUM 1,000 UN/ML (10ML VL) IV ONE (11:00)
--- NOTE | 2023-08-19 11:17 | P.OP ---
Date of Procedure: 08/19/23 Preoperative Diagnosis: 1: End-stage renal diseasedialysis dependent. 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 3: Dysfunction of right upper extremity AV fistula. Postoperative Diagnosis: Same. Procedure(s) Performed: 1: Excision of pseudoaneurysm the degenerated right upper extremity AV fistula. 2: Interposition AV fistula with cadaveric vein. 3: Ultrasound and fluoroscopic guided placement of a tunneled hemodialysis catheter placed via the left internal jugular vein approach. Anesthesia: GETA Surgeon: Ezra Polanco Estimated Blood Loss (ml): 100 Urine output (ml): 0 Pathology: other (Pseudoaneurysm really degenerated AV fistula) Condition: stable Disposition: no change Indications for Procedure: Patient is a 62-year-old male with a longstanding history of end-stage renal disease secondary to surgical nephrectomy for malignant related kidney disease. He has been utilizing a right upper extremity AV fistula for hemodialysis. Recently the fistula has been somewhat problematic at dialysis. Additionally the fistula has degenerated with multiple pseudoaneurysms present greater than 3 cm in greatest dimension. Patient is now offered explantation of the dysfunctional segment of AV fistula with interposition of a cadaveric vein. Dialysis catheter is necessary so that the patient can continue to receive hemodialysis during time required for healing of the surgical wound and maturation of the fistula. The procedure, risk and benefits were discussed with the patient. All questions were answered to patient's satisfaction. Consent form was signed. Description of Procedure: Patient was brought the op room placed in supine position and eventually administered general inhalational anesthesia delivered by LMA. Patient received 2 g of IV Ancef in the perioperative period for prophylactic antibiotic purposes. The patient's right upper extremity sterilely prepped and draped in usual manner. Initially 1% Xylocaine was utilized for local anesthesia of the tissues ove rlying the plantar incision line over the pseudoaneurysm the degenerated AV fistula. The incision was deepened through the subcutaneous tissues. Hemostasis was achieved using electrocautery. Utilizing a combination of electrocautery and scissor technique the vein segment near the anastomotic line was dissected free of investing tissues and encircled with Vesseloops. The same technique was then utilized to expose the entire length of the pseudoaneurysmal a degenerated AV fistula to the antecubital fossa where the outflow vein was identified and encircled with Vesseloops after being dissected free of investing tissues. The patient was systemically heparinized and after adequate circulation time inflow and outflow control was gained. The fistula was transected proximally and distally and sent to pathology. A cadaveric vein was properly oriented and checked for leaks. None were found and was marked to avoid twisting. The end was spatulated match the inflow segment and end to end anastomosis was created utilizing 5-0 Prolene suture placed in running fashion. The anastomotic line was completed and the anastomotic line was then checked. 1 area of leak was identified this was controlled with 6-0 Prolene suture. Excellent pulsatile flow was identified at the distal end of the vein. The vein was then occluded. The proximal end of the vein was then cut to the appropriate length and spatulated to match the venous outflow vein. End-to-and anastomosis was created utilizing 6-0 Prolene suture placed in a running fashion. Just prior to completion of the anastomotic line the vein was flushed and no thrombus was retrieved. The anastomotic line was completed throughout flow restored through the graft and into the outflow vein. Hand-held ultrasound was utilized to interrogate the vein and excellent flow characteristics were noted by Doppler as well as clinical examination. The wound was then irrigated with antibiotic-containing solution. Advancement flap was created along the lateral aspect and the vein was loosely positioned in the subcutaneous tissues and held in place with Vicryl suture bringing subcutaneous tissues together without impingement of the vein. The wound was then closed with 4-0 Monocryl placed in a running intradermal fashion. Appropriate dressings were applied. Patient maintained a palpable radial pulse postoperatively. Attention was then turned to the chest wall area for placement of tunneled hemodialysis catheter. Ultrasound was utilized to interrogate both the left and right internal jugular veins. The left internal jugular vein appeared very appropriate for access. Patient's anterior chest wall supraclavicular and lateral neck areas bilaterally were sterilely prepped and draped in usual manner after being repositioned. Ultrasound was utilized to identify the internal jugular vein on the left. Multipurpose needle was utilized to cannulate the vein and once cannulated soft tipped guidewire was advanced into the central venous system and its position was confirmed with fluoroscopy. Just inferior and lateral to the angle of the clavicle 1% Xylocaine was utilized for local anesthesia of the skin and soft tissues. Through this anesthetized area skin incision was made and a palindrome catheter was tunneled between the chest and neck incisions. Vessel dilators were advanced and withdrawn and eventually the dialysis catheter sheath and dilator were advanced over the guidewire. Guidewire and dilator were withdrawn and the catheter was advanced through the sheath. Sheath was peeled away. Fluoroscopy demonstrated the catheter to be in proper position without evidence of kinking of the catheter. Blood was easily aspirated through both lumens of the catheter. Each lumen of the catheter was then blocked with 1000 units of heparin per mL times volume appropriate. The neck wound was closed with 4-0 PDS in the catheter was secured to the skin with 3-0 nylon suture. Appropriate dressings were applied. Patient tolerated the procedure well. Chest x-ray will be obtained to confirm absence of pneumothorax. He was taken to the recovery area in satisfactory and stable condition. Plan - Discharge Summary Discharge Rx Participant: No New Discharge Prescriptions: No Action Famotidine [Pepcid] 40 mg PO DAILY Aspirin [Adult Low Dose Aspirin EC] 81 mg PO DAILY Minocycline HCl [Minocin] 100 mg PO HS hydrALAZINE HCL 50 mg PO BID Ascorbic Acid [Vitamin C] 1,000 mg PO BID Zinc Gluconate [Zinc] 50 mg PO BID ondansetron HCL [Zofran] 8 mg PO Q12HR amLODIPine [Norvasc] 10 mg PO HS carvediloL [Coreg] 50 mg PO BID Lanthanum Carbonate [Lanthanum Carbonate Chew] 2,000 mg PO TID-W/MEALS Atorvastatin [Lipitor] 40 mg PO HS Vitamin B Complex 1 cap PO HS Sacubitril/Valsartan [Entresto 24 mg-26 mg Tablet] 1 each PO BID Isosorbide Mononitrate [Isosorbide Mononitrate ER] 30 mg PO DAILY Discharge Medication List Ascorbic Acid [Vitamin C] 1,000 mg PO BID 05/03/23 [History] Aspirin [Adult Low Dose Aspirin EC] 81 mg PO DAILY 05/03/23 [History] Famotidine [Pepcid] 40 mg PO DAILY 05/03/23 [History] Lanthanum Carbonate [Lanthanum Carbonate Chew] 2,000 mg PO TID-W/MEALS 05/03/23 [History] Minocycline HCl [Minocin] 100 mg PO HS 05/03/23 [History] Zinc Gluconate [Zinc] 50 mg PO BID 05/03/23 [History] amLODIPine [Norvasc] 10 mg PO HS 05/03/23 [History] carvediloL [Coreg] 50 mg PO BID 05/03/23 [History] ondansetron HCL [Zofran] 8 mg PO Q12HR 05/03/23 [History] Atorvastatin [Lipitor] 40 mg PO HS 05/15/23 [History] Vitamin B Complex 1 cap PO HS 05/15/23 [History] hydrALAZINE HCL 50 mg PO BID 05/15/23 [History] Isosorbide Mononitrate [Isosorbide Mononitrate ER] 30 mg PO DAILY 08/14/23 [History] Sacubitril/Valsartan [Entresto 24 mg-26 mg Tablet] 1 each PO BID 08/14/23 [History]
--- NOTE | 2023-08-19 12:11 | XR ---
EXAMINATION TYPE: XR chest 1V portable DATE OF EXAM: 08/19/2023 COMPARISON: 04/30/2023 INDICATION: Evaluate for pneumothorax post catheter placement TECHNIQUE: Single frontal view of the chest is obtained. FINDINGS: The heart size is normal. The pulmonary vasculature is normal. The lungs are clear. Previous left pleural effusion has resolved. No pneumothorax is evident. Double-lumen catheter is patty carli on the left the tips in the proximal right atrium. IMPRESSION: 1. No acute pulmonary process. 2. No pneumothorax post catheter placement. Tips are within the proximal right atrium
[2023-08-19] MEDS ORDERED: SODIUM CHLORIDE 0.9% IVPB STA (12:37)
[2023-08-19] MEDS ORDERED: PROTAMINE SULFATE IVPB STA (12:37)
[2023-08-19] MEDS: PROTAMINE SULFATE 10 MG/ML 5 ML VIAL IV STA (13:08)
[2023-08-19] MEDS: IV FLUID CONTINUATION 1,000 ML IV ONE (13:18)
[2023-08-19] MEDS ORDERED: SUCCINYLCHOLINE CHLORIDE 200 MG/10 ML VIAL IV ONE (13:18)
[2023-08-19] MEDS ORDERED: LIDOCAINE 1% INJ 10MG/ML (20 ML MDV) ONE (13:18)
[2023-08-19] MEDS ORDERED: PHENYLEPHRINE 10 MG/ML VIAL ONE (13:18)
[2023-08-19] MEDS ORDERED: ePHEDrine 50 MG/ML 1 ML VIAL ONE (13:18)
[2023-08-19] MEDS: SODIUM CHLORIDE 0.9% 50 ML with ceFAZolin 1,000 MG IV ONE (13:47)
[2023-08-19] MEDS: GELATIN SPONGE,ABSORB (LARGE) 1 EACH SPONGE MISCELLANE ONE (13:50)
[2023-08-19] MEDS: LACTATED RINGERS 1,000 ML IV ONE (14:14)
--- NOTE | 2023-08-19 14:32 | FL ---
Fluoroscopy INDICATION: Pain FINDINGS: Fluoroscopy time: 6 seconds. Total dose area product (DAP) in uGy*m?, mGy*cm? (or similar): 0.357 Images obtained: 6. IMPRESSION: 1. Documentation of fluoroscopy.
--- NOTE | 2023-08-19 15:24 | P.PN ---
Progress Note - Text Progress Note Date: 08/19/23 Received call from recovery room nurses regarding unanticipated bleeding. I presented to the recovery area and found significant bleeding from the surgical wound. This bleeding required return to the operating room for control. I discussed this knotting with the patient but also with his . Plans are being made urgently to return to the operating room for wound exploration.
--- NOTE | 2023-08-19 15:29 | P.OP ---
Date of Procedure: 08/19/23 Preoperative Diagnosis: Postoperative bleeding. Postoperative Diagnosis: Same secondary to small anastomotic line leak. Procedure(s) Performed: Wound exploration with control of postoperative bleeding. Implants: None. Anesthesia: GETA Surgeon: Ezra Polanco Estimated Blood Loss (ml): 100 Pathology: none sent Condition: stable Disposition: observation Indications for Procedure: Patient had undergone resection of pseudoaneurysm newly dilated AV graft with interposition graft utilizing cadaveric vein as well as placement of a tunneled hemodialysis catheter placed via the left internal jugular vein approach. Patient tolerated the procedure well however in recovery room excessive bleeding was experienced. It was felt best that the patient be brought back to the operating room for exploration and control of bleeding. Description of Procedure: Patient brought the op room placed in the supine position administered general inhalational anesthesia delivered by the department of anesthesiology via an LMA. Patient received 1 g of Ancef in the preoperative phase. Patient's right upper extremity was sterilely prepped and draped in usual manner. A inflatable tourniquet had been placed prior to prepping the upper extremity. The tourniquet was inflated to 100 mmHg. The wound was sharply opened. No active bleeding was identified and the cuff was deflated. Inspection of the wound demonstrated a small anastomotic line leak at the distal anastomosis as well as some generalized raw surface oozing. The anastomotic line leak was controlled with 6-0 Prolene suture. The wound was irrigated and a thorough inspection of the wound demonstrated no additional points of bleeding. Powdered hemostatic agent was spread throughout the entirety of the wound. Deep tissues were closed with 3-0 Vicryl placed in the deep subcutaneous tissues. The more superficial subcutaneous tissues were then closed with a running 4-0 Monocryl suture. Appropriate dressings were applied. Patient maintained a palpable radial pulse postoperatively. The wound was then appropriately dressed. Patient tolerated the procedure well and was taken to the recovery area in satisfactory and stable condition.
[2023-08-19] MEDS: droPERidol 5 MG/2 ML VIAL IVP ONE (16:12)
[2023-08-19] MEDS: ONDANSETRON 4 MG/2 ML VIAL IVP ONE (16:12)
[2023-08-19 17:24] LABS: Glucose,Whole Blood 150 mg/dL (70-110)
[2023-08-19] MEDS: SEVELAMER 800 MG TAB PO SCH (18:40)
[2023-08-19] MEDS: carvediloL 12.5 MG TAB PO SCH (18:40)
[2023-08-19] MEDS: ATORVASTATIN 40 MG TAB PO SCH (20:58)
[2023-08-19] MEDS: ASCORBIC ACID 500 MG TAB PO SCH (21:01)
[2023-08-19] MEDS: ONDANSETRON 4 MG TAB PO SCH (21:01)
[2023-08-19] MEDS: ZINC SULFATE 220 MG CAP PO SCH (21:01)
[2023-08-19] MEDS: FOLIC ACID-VIT B COMPLEX-VIT C 1 CAP PO SCH (21:01)
[2023-08-19] MEDS: amLODIPine 10 MG TAB PO SCH (21:01)
[2023-08-19] MEDS: hydrALAZINE HCL 50 MG TAB PO SCH (21:02)
[2023-08-19] MEDS: SACUBITRIL/VALSARTAN 24 MG-26 MG TABLET PO SCH (21:02)
[2023-08-19] MEDS: MINOCYCLINE 50 MG CAP PO SCH (21:02)
[2023-08-19] MEDS ORDERED: HYDROcodone/APAP 5-325MG 1 EACH TAB PO PRN (22:07)
[2023-08-19] MEDS: MORPHINE SULFATE 2 MG/ML SYRINGE IVP PRN (22:32)
[2023-08-20 08:25] LABS: African American GFR (CKD) 7 (>60 ml/min/1.73 sqM); Anion Gap 15 mmol/L; Blood Urea Nitrogen 67 mg/dL (9-20); Calcium 9.5 mg/dL (8.4-10.2); Carbon Dioxide 23 mmol/L (22-30); Chloride 98 mmol/L (98-107); Glucose 75 mg/dL (74-99); Non-African American GFR(CKD) 6 (>60 ml/min/1.73 sqM); Potassium 4.7 mmol/L (3.5-5.1); Sodium 136 mmol/L (137-145)
[2023-08-20 08:37] LABS: Anisocytosis Slight; HCT 32.2 % (39.0-53.0); HGB 9.8 gm/dL (13.0-17.5); Hypochromasia Slight; MCH 29.4 pg (25.0-35.0); MCHC 30.5 g/dL (31.0-37.0); MCV 96.6 fL (80.0-100.0); Macrocytosis Slight; Mean Platelet Volume 8.3; Platelet Count 125 k/uL (150-450); RBC 3.34 m/uL (4.30-5.90); RDW 16.7 % (11.5-15.5); WBC 8.2 k/uL (3.8-10.6)
[2023-08-20 08:48] LABS: ALT 8 U/L (4-49); AST 12 U/L (17-59); Albumin 3.2 g/dL (3.5-5.0); Albumin/Globulin Ratio 1.5; Alkaline Phosphatase 88 U/L (38-126); Globulin 2.2 g/dL; Total Bilirubin 0.3 mg/dL (0.2-1.3); Total Protein 5.4 g/dL (6.3-8.2)
[2023-08-20] MEDS: ISOSORBIDE MONONITRATE ER 30 MG TAB.ER.24H PO SCH (09:20)
[2023-08-20] MEDS: FAMOTIDINE 20 MG TAB PO SCH (09:20)
[2023-08-20] MEDS: ASPIRIN 81 MG PO SCH (09:21)
--- NOTE | 2023-08-20 11:03 | P.DS ---
Providers Expected date of discharge: 08/20/23 Attending physician: Ezra Polanco DO Consults: 08/19/23 15:22 Consult Physician Routine Consulting Provider: Christal Tejada Consult Reason/Comments: ESRD on dialysis, dialysis orders Do you want consulting provider notified?: Yes Primary care physician: Danielle Rodriguez [facility] Course: 62-year-old male with longstanding history of end-stage renal disease secondary to surgical nephrectomy for malignant related kidney disease. He has been utilizing right upper extremity AV fistula for hemodialysis recently the fistula had been somewhat problematic at dialysis. The fistula had generated multiple pseudoaneurysms patient was scheduled for outpatient excision of pseudoaneurysm and interposition AV fistula as well as tunneled hemodialysis catheter pl acement. He is postop day #1 for excision of pseudoaneurysm of the degenerated right upper extremity AV fistula, interposition AV fistula with cadaveric vein and tunneled hemodialysis catheter placement. Following his procedure the patient had right upper extremity bleeding which required surgical intervention. He underwent a wound exploration with control of postoperative bleeding secondary to a small anastomotic line leak. Through the night patient did have some bleeding at his tunneled catheter site which was reinforced with pressure. He had no further bleeding of the right upper extremity. He is scheduled for hemodialysis today. He does have some discomfort at the left chest wall, bleeding has stopped. There is some bruising noted at site but no hematoma noted. Chest x-ray following procedure showed no acute pulmonary process no pneumothorax post catheter placement. Patient is without any complaints of shortness of breath, chest pain, abdominal pain, nausea or vomiting. Right upper extremity tenderness around surgical site but again no further bleeding. He has full range of motion of his hand and good palpable pulse. WBC 8.2 hemoglobin 9.8 platelet count 125,000 sodium 136 potassium 4.7 BUN 67 creatinine 8.7 Exam: General appearance: The patient is alert, oriented, appears in no acute distress. HET: Head is normocephalic and atraumatic. Neck: Supple. Heart: Regular. Lungs: Equal expansion, normal respiratory effort. Chest: Left chest wall tunneled catheter in place without any active bleeding. Dressing intact. Area of ecchymosis. Abdomen: Soft, nontender, nondistended. Extremities: Right upper extremity incision well-approximated without any bleeding. There is surrounding ecchymosis. +2 palpable radial pulse. Sensorimotor intact. Neurological: No focal deficits. Strength and sensation are grossly intact. Assessment: 1. End-stage renal disease dialysis dependent 2. 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 Tunneled hemodialysis catheter placement via left internal jugular vein 4. Postoperative bleeding secondary to small anastomotic line leak status post wound exploration with control of postoperative bleeding Plan Patient was admitted to observation overnight to monitor for further bleeding. Nephrology consulted for hemodialysis. Patient is to have scheduled hemodialysis today and following may be discharged home if cleared by nephrology. Patient instructed to limit use of right upper extremity for next 3 days, no tub bathing only shower until cleared by vascular surgery. Patient also instructed if any further bleeding, any concerns for redness, drainage or signs of infection to call office or return to the emergency department. The impression and plan of care has been dictated as directed. Dr.Giliberto Kaye performed a history and examination of this patient, discussed the same with the dictator. I agree with the dictator's note ,documented as a scribe. Any additional findings or plans will be noted. Procedures: Procedure(s) Performed: 1: Excision of pseudoaneurysm the degenerated right upper extremity AV fistula. 2: Interposition AV fistula with cadaveric vein. 3: Ultrasound and fluoroscopic guided placement of a tunneled hemodialysis catheter placed via the left internal jugular vein approach. 1:Wound exploration with control of postoperative bleeding. Patient Condition at Discharge: Stable Plan - Discharge Summary Discharge Rx Participant: No New Discharge Prescriptions: New HYDROcodone/APAP 5-325MG [[place] 5-325] 1 tab PO Q6HR PRN #10 tab PRN Reason: Pain Scale 6 To 7 Continue Famotidine [Pepcid] 40 mg PO DAILY Aspirin [Adult Low Dose Aspirin EC] 81 mg PO DAILY Minocycline HCl [Minocin] 100 mg PO HS hydrALAZINE HCL 50 mg PO BID Ascorbic Acid [Vitamin C] 1,000 mg PO BID Zinc Gluconate [Zinc] 50 mg PO BID ondansetron HCL [Zofran] 8 mg PO Q12HR amLODIPine [Norvasc] 10 mg PO HS carvediloL [Coreg] 50 mg PO BID Lanthanum Carbonate [Lanthanum Carbonate Chewable] 2,000 mg PO TID-W/MEALS Atorvastatin [Lipitor] 40 mg PO HS Vitamin B Complex 1 cap PO HS Sacubitril/Valsartan [Entresto 24 mg-26 mg Tablet] 1 each PO BID Isosorbide Mononitrate [Isosorbide Mononitrate ER] 30 mg PO DAILY Discharge Medication List Ascorbic Acid [Vitamin C] 1,000 mg PO BID 05/03/23 [History] Aspirin [Adult Low Dose Aspirin EC] 81 mg PO DAILY 05/03/23 [History] Famotidine [Pepcid] 40 mg PO DAILY 05/03/23 [History] Lanthanum Carbonate [Lanthanum Carbonate Chewable] 2,000 mg PO TID-W/MEALS 05/03/23 [History] Minocycline HCl [Minocin] 100 mg PO HS 05/03/23 [History] Zinc Gluconate [Zinc] 50 mg PO BID 05/03/23 [History] amLODIPine [Norvasc] 10 mg PO HS 05/03/23 [History] carvediloL [Coreg] 50 mg PO BID 05/03/23 [History] ondansetron HCL [Zofran] 8 mg PO Q12HR 05/03/23 [History] Atorvastatin [Lipitor] 40 mg PO HS 05/15/23 [History] Vitamin B Complex 1 cap PO HS 05/15/23 [History] hydrALAZINE HCL 50 mg PO BID 05/15/23 [History] Isosorbide Mononitrate [Isosorbide Mononitrate ER] 30 mg PO DAILY 08/14/23 [History] Sacubitril/Valsartan [Entresto 24 mg-26 mg Tablet] 1 each PO BID 08/14/23 [History] HYDROcodone/APAP 5-325MG [[place] 5-325] 1 tab PO Q6HR PRN #10 tab 08/19/23 [Rx] Follow up Appointment(s)/Referral(s): Ezra Polanco DO [Doctor of Osteopathic Medicine] - 09/12/23 10:30 am Patient Instructions/Handouts: *Surgery [facility] - (Anesthesia) Discharge Instructions Outpatient Surgery, Arteriovenous Graft Creation for Hemodialysis (DC) Activity/Diet/Wound Care/Special Instructions: No heavy or strenuous activity with the right upper extremity. Monitor surgical site for bleeding, redness, drainage, signs of infection,, fever 100.4 or greater. Call office or go to the emergency room if you are experiencing these symptoms. Shower only, no tub bathing Discharge Disposition: HOME SELF-CARE
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
[2023-08-20 16:42] VITALS: BP 136/78; PULSE 74
[2023-08-20 16:43] VITALS: RESP 16; TEMP 97.7
[2023-08-21] MEDS ORDERED: FAMOTIDINE 20 MG TAB PO SCH (09:00)
== END 2023-08-20 16:07 | disposition home or self-care (01) ==
LOC: OR 05:45 → 6NMEDSUR 14:36 → OR 08-20 16:07
PROVIDERS: ATTEND Surgery
DX: I13.2 Hypertensive heart and chronic kidney disease with heart failure and with stage 5 chronic kidney disease, or end stage renal disease (principal); N18.6 End stage renal disease; I50.9 Heart failure, unspecified; I25.10 Atherosclerotic heart disease of native coronary artery without angina pectoris; G89.18 Other acute postprocedural pain; E78.5 Hyperlipidemia, unspecified; K21.9 Gastro-esophageal reflux disease without esophagitis; M19.90 Unspecified osteoarthritis, unspecified site; Z79.82 Long term (current) use of aspirin; Z79.899 Other long term (current) drug therapy; Z85.51 Personal history of malignant neoplasm of bladder; Z86.73 Personal history of transient ischemic attack (TIA), and cerebral infarction without residual deficits; Z90.49 Acquired absence of other specified parts of digestive tract; Z99.2 Dependence on renal dialysis
CPT/HCPCS: 36558; 36825; 64415; 80053; 84132; 85027; 77001; 71045; C1713; C1750; J2250; J0330; J2720; J1644 ×2; J1100; J0690 ×2; J2001; J3010; J2270 ×2; J2795; J2704; J2371; 90935

== ENCOUNTER 2023-08-23 11:29 | Emergency (ER) | payer MEDICARE, BC ==
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
[2023-08-23 12:12] VITALS: TEMP 97.9
[2023-08-23 14:20] VITALS: BP 132/78; PULSE 80; RESP 18
== END 2023-08-23 14:09 | disposition home or self-care (01) ==
LOC: EC 11:29
DX: T82.838A Hemorrhage due to vascular prosthetic devices, implants and grafts, initial encounter (principal); F12.90 Cannabis use, unspecified, uncomplicated
CPT/HCPCS: 99283

== ENCOUNTER 2023-11-29 10:55 | Day surgery (SDC) | payer MEDICARE, BC ==
[2023-11-27 16:08] VITALS: BMI 31.0
[~2023-11-29 10:55] MED LIST changes: +DEXAMETHASONE SOD PHOSPHATE 4 MG/ML 1 ML VIAL IV ONE; +LACTATED RINGERS 1,000 ML IV SCH
[2023-11-29 11:49] VITALS: RESP 16; TEMP 97.6
[2023-11-29] MEDS: IV FLUID CONTINUATION 1,000 ML IV ONE (11:51)
[2023-11-29] MEDS: SODIUM CHLORIDE 0.9% 500 ML DEHP FREE BAG IV STA (11:51)
[2023-11-29 12:03] LABS: Basophils # (A) 0.1 k/uL (0-0.2); Basophils % (A) 1 %; Eosinophils # (A) 0.2 k/uL (0-0.7); Eosinophils % (A) 3 %; HCT 33.7 % (39.0-53.0); HGB 11.2 gm/dL (13.0-17.5); Lymphocytes # (A) 0.9 k/uL (1.0-4.8); Lymphocytes % (A) 14 %; MCH 30.6 pg (25.0-35.0); MCHC 33.3 g/dL (31.0-37.0); MCV 91.8 fL (80.0-100.0); Mean Platelet Volume 8.3; Monocytes # (A) 0.6 k/uL (0-1.0); Monocytes % (A) 9 %; Neutrophils # (A) 4.5 k/uL (1.3-7.7); Neutrophils % (A) 70 %; Platelet Count 148 k/uL (150-450); RBC 3.67 m/uL (4.30-5.90); RDW 15.6 % (11.5-15.5); WBC 6.4 k/uL (3.8-10.6)
[2023-11-29] MEDS: ONDANSETRON 4 MG/2 ML VIAL IVP ONE (12:03)
[2023-11-29] MEDS: MIDAZOLAM 2 MG/2 ML VIAL IV PRN (12:04)
[2023-11-29] MEDS: fentaNYL (PF) 50 MCG/ML 2 ML AMP IVP PRN (12:04)
--- NOTE | 2023-11-29 12:22 | P.ANPRN ---
Procedure Note - Anesthesia - Nerve Block Performed Right Axillary Single Time Out Performed: Yes Date of Procedure: 11/29/23 Procedure Start Time: 12:04 Procedure Stop Time: 12:12 Location of Patient: PreOp Indication: Acute Post-Operative Pain, Requested by Surgeon Sedation Type: Sedate with meaningful contact maintained Preparation: Sterile Prep Position: Supine Needle Types: Pajunk Needle Gauge: 21 Ultrasound used to visualize needle placement: Yes Ultrasound used to observe medication spread: Yes Injectate: 0.5% Ropivacaine (see comment for volume) (30 ml + 4 mg Dexam ethasone) Blood Aspirated: No Pain Paresthesia on Injection Noted: No Resistance on Injection: Normal Image Stored and Saved: Yes Events: Uneventful and Well Tolerated
[2023-11-29 12:30] LABS: ALT 16 U/L (4-49); AST 22 U/L (17-59); African American GFR (CKD) 9 (>60 ml/min/1.73 sqM); Albumin 4.3 g/dL (3.5-5.0); Alkaline Phosphatase 130 U/L (38-126); Anion Gap 11 mmol/L; Blood Urea Nitrogen 53 mg/dL (9-20); Calcium 9.3 mg/dL (8.4-10.2); Carbon Dioxide 30 mmol/L (22-30); Chloride 97 mmol/L (98-107); Glucose 73 mg/dL (74-99); Non-African American GFR(CKD) 8 (>60 ml/min/1.73 sqM); Potassium 4.3 mmol/L (3.5-5.1); Sodium 138 mmol/L (137-145); Total Bilirubin 0.6 mg/dL (0.2-1.3); Total Protein 6.7 g/dL (6.3-8.2)
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
[2023-11-29] MEDS ORDERED: HEPARIN SODIUM,PORCINE 5,000 UNIT/ML 1 ML VIAL ONE (12:55)
[2023-11-29] MEDS ORDERED: LIDOCAINE 1% INJ 10MG/ML (20 ML MDV) ONE (12:55)
[2023-11-29] MEDS ORDERED: ROPIVACAINE 5 MG/ML 30 ML VIAL ONE (12:55)
[2023-11-29] MEDS ORDERED: KETAMINE HCL IN 0.9 % NACL 50 MG/5 ML SYRINGE ONE (12:55)
[2023-11-29] MEDS ORDERED: DEXAMETHASONE SOD PHOSPHATE 4 MG/ML 1 ML VIAL ONE (12:55)
[2023-11-29] MEDS ORDERED: MIDAZOLAM 2 MG/2 ML VIAL ONE (12:55)
[2023-11-29] MEDS ORDERED: fentaNYL (PF) 50 MCG/ML 2 ML AMP ONE (12:55)
[2023-11-29] MEDS ORDERED: PROPOFOL 10 MG/ML 20 ML VIAL IV ONE (12:55)
[2023-11-29] MEDS: ceFAZolin 2 GM in SODIUM CHLORIDE 0.9% 500 ML 500 ML IRRIGATION ONE (13:33)
[2023-11-29] MEDS: HEPARIN SODIUM,PORCINE (1 ML) 2,000 UNIT in SODIUM CHLORIDE 0.9% 500 ML 500 ML IRRIGATION ONE (13:34)
--- NOTE | 2023-11-29 15:03 | P.OP ---
Date of Procedure: 11/29/23 Preoperative Diagnosis: ESRD Postoperative Diagnosis: same Procedure(s) Performed: Right upper extremity brachiocephalic fistula creation Anesthesia: regional Surgeon: Ghanshyam Mary Estimated Blood Loss (ml): 20 Pathology: none sent Condition: stable Disposition: PACU Indications for Procedure: 62-year-old gentleman with history of end-stage renal disease on hemodialysis via left sided tunneled catheter with previous history of right radiocephalic fistula with revision with CryoVein interposition graft presents to the hospital for right upper extremity brachiocephalic fistula creation. Description of Procedure: After written and informed consent was obtained from the patient the patient was brought to the operative suite and laid in a supine position. The right arm was prepped and draped in the usual sterile fashion after appropriate anesthesia was performed per the anesthesiologist. Utilizing ultrasound the cephalic vein was visualized and marked and shown to be good size. A transverse incision was then created with a 15 blade scalpel just proximal to the elbow and dissection was carried down to the brachial artery which was dissected free in a circumferential manner. Proximal distal control was then obtained with vessel loops. Attention was then placed back to the cephalic vein which was located and dissected free in a circumferential manner distally to the elbow. At the elbow it was ligated with silk suture. Further dissection was carried around the vein and the vein was brought over to the brachial artery. Serial dilation was then performed on the vein and good backbleeding was noted. Patient was administered 3000 units of heparin and the brachial artery was clamped at the proximal and distal aspect. Utilizing 11 blade scalpel and arteriotomy was created and extended with Pott Mazariegos scissors. There was good brisk backbleeding noted from the brachial artery and pulsatile blood flow visualized from the proximal aspect. The vein was then spatulated and an end-to-side anastomosis was created with a 7-0 Prolene suture. Prior to last sutures being placed the control was released from the vein revealing good backbleeding and distal control on the brachial artery was released revealing good back flow. T he proximal control was then released and good pulsatile blood flow was visualized in the fistula and final sutures were secured. The area was copiously irrigated with antibiotic solution. Hemostasis was assured. The vessels were then interrogated with Doppler which demonstrated good multiphasic signal distal to the anastomosis as well as positive bruit within the vein consistent with good fistula creation. Under ultrasound there was pulsatile flow noted in the cephalic vein. The incision was then closed in a multilayer fashion. The skin was cleansed and glued. Patient tolerated the procedure well and was sent to PACU for recovery.
[2023-11-29 15:23] VITALS: BP 136/84; PULSE 68
== END 2023-11-29 15:36 | disposition home or self-care (01) ==
LOC: OR 10:55
PROVIDERS: ATTEND Surgery
DX: I13.2 Hypertensive heart and chronic kidney disease with heart failure and with stage 5 chronic kidney disease, or end stage renal disease (principal); N18.6 End stage renal disease; I50.9 Heart failure, unspecified; D63.1 Anemia in chronic kidney disease; Z99.2 Dependence on renal dialysis; G89.18 Other acute postprocedural pain; E78.00 Pure hypercholesterolemia, unspecified; K21.9 Gastro-esophageal reflux disease without esophagitis; I25.119 Atherosclerotic heart disease of native coronary artery with unspecified angina pectoris; Z85.51 Personal history of malignant neoplasm of bladder; Z85.528 Personal history of other malignant neoplasm of kidney; Z95.5 Presence of coronary angioplasty implant and graft; Z79.899 Other long term (current) drug therapy; Z79.82 Long term (current) use of aspirin
CPT/HCPCS: 64415; 80053; 85025; 36821; J2250; J1644; J1100; J0690; J2405; J2001; J3010; J2795; J2704

== ENCOUNTER 2024-06-27 08:46 | Inpatient (IN) | payer BC, MEDICARE ==
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
[2024-06-27 10:17] LABS: Basophils # (A) 0.1 k/uL (0-0.2); Basophils % (A) 1 %; Eosinophils # (A) 0.3 k/uL (0-0.7); Eosinophils % (A) 3 %; HCT 35.1 % (39.0-53.0); HGB 11.5 gm/dL (13.0-17.5); Lymphocytes # (A) 1.2 k/uL (1.0-4.8); Lymphocytes % (A) 13 %; MCH 30.7 pg (25.0-35.0); MCHC 32.9 g/dL (31.0-37.0); MCV 93.4 fL (80.0-100.0); Mean Platelet Volume 8.1; Monocytes # (A) 0.8 k/uL (0-1.0); Monocytes % (A) 8 %; Neutrophils # (A) 6.6 k/uL (1.3-7.7); Neutrophils % (A) 73 %; Platelet Count 199 k/uL (150-450); RBC 3.75 m/uL (4.30-5.90); RDW 15.6 % (11.5-15.5)
[2024-06-27 10:21] LABS: ALT 12 U/L (4-49); AST 12 U/L (17-59); African American GFR (CKD) 9 (>60 ml/min/1.73 sqM); Alkaline Phosphatase 145 U/L (38-126); Anion Gap 15 mmol/L; Blood Urea Nitrogen 35 mg/dL (9-20); Calcium 9.4 mg/dL (8.4-10.2); Carbon Dioxide 25 mmol/L (22-30); Chloride 96 mmol/L (98-107); Glucose 78 mg/dL (74-99); Magnesium 2.2 mg/dL (1.6-2.3); Non-African American GFR(CKD) 8 (>60 ml/min/1.73 sqM); Potassium 4.6 mmol/L (3.5-5.1); Sodium 136 mmol/L (137-145); Total Bilirubin 0.7 mg/dL (0.2-1.3); Total Protein 6.7 g/dL (6.3-8.2)
[2024-06-27 10:22] LABS: Partial Thromboplastin Time 22.6 sec (22.0-30.0); Prothrombin Time 11.2 sec (10.0-12.5)
[2024-06-27] MEDS: HEPARIN SOD,PORK IN 0.45% NACL 25,000 UNIT in 0.45% NACL 1 250ML.BAG IV SCH (10:31)
--- NOTE | 2024-06-27 10:31 | XR ---
EXAMINATION TYPE: XR chest 2V DATE OF EXAM: 06/27/2024 10:24 AM COMPARISON: 08/19/2023 CLINICAL INDICATION: Male, 63 years old with history of dysrhythmia, TECHNIQUE: XR chest 2V view(s) obtained. FINDINGS: The heart size is normal. The pulmonary vasculature is normal. No suspicious infiltrates.. IMPRESSION: 1. No acute pulmonary process. [facility], , 06/27/2024 10:28 AM
[2024-06-27] MEDS: HEPARIN SODIUM 1,000 UN/ML (10ML VL) IV ONE (10:33)
[2024-06-27] MEDS: SODIUM CHLORIDE 0.9% 1,000 ML IV STA (10:34)
[2024-06-27] MEDS: DILTIAZEM DRIP BOLUS FROM BAG 1 MG SOLN IV ONE (10:36)
[2024-06-27] MEDS: DILTIAZEM 125 MG in SODIUM CHLORIDE 0.9% 100 ML IV SCH (10:38)
[2024-06-27] MEDS ORDERED: NALOXONE 0.4 MG/ML 1 ML VIAL IV PRN (10:57)
[2024-06-27] MEDS ORDERED: ONDANSETRON ODT 8 MG TAB.RAPDIS PO PRN (14:59)
[2024-06-27] MEDS ORDERED: ACETAMINOPHEN TAB 325 MG TAB PO PRN (15:00)
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
[2024-06-27] MEDS: HEPARIN SODIUM 1,000 UN/ML (10ML VL) IV PRN (17:12)
[2024-06-27] MEDS: SEVELAMER 800 MG TAB PO SCH (17:18)
[2024-06-27] MEDS: SENNOSIDES-DOCUSATE SODIUM 1 EACH TAB PO SCH (20:53)
[2024-06-27] MEDS: MINOCYCLINE 50 MG CAP PO SCH (20:53)
[2024-06-27] MEDS: carvediloL 12.5 MG TAB PO SCH (20:53)
[2024-06-27] MEDS: ASCORBIC ACID 500 MG TAB PO SCH (20:53)
[2024-06-27] MEDS: FAMOTIDINE 20 MG TAB PO SCH (20:53)
[2024-06-27] MEDS: SACUBITRIL/VALSARTAN 24 MG-26 MG TABLET PO SCH (20:53)
[2024-06-27] MEDS: ATORVASTATIN 40 MG TAB PO SCH (20:53)
[2024-06-27] MEDS ORDERED: NON FORMULARY DRUG (Vitamin B Complex [Vitamin B Complex] 1 EACH Capsule) PO SCH (21:00)
[2024-06-28 07:28] LABS: African American GFR (CKD) 7 (>60 ml/min/1.73 sqM); Anion Gap 14 mmol/L; Blood Urea Nitrogen 49 mg/dL (9-20); Calcium 9.2 mg/dL (8.4-10.2); Carbon Dioxide 22 mmol/L (22-30); Chloride 100 mmol/L (98-107); Glucose 76 mg/dL (74-99); Non-African American GFR(CKD) 6 (>60 ml/min/1.73 sqM); Sodium 136 mmol/L (137-145)
[2024-06-28 07:31] LABS: Magnesium 2.2 mg/dL (1.6-2.3); Potassium 5.8 mmol/L (3.5-5.1)
[2024-06-28] MEDS: SODIUM ZIRCONIUM CYCLOSILICATE 10 GM PACKET PO ONE (08:04)
[2024-06-28] MEDS: ASPIRIN 81 MG PO SCH (08:05)
[2024-06-28] MEDS: APIXABAN 2.5 MG TABLET PO SCH (10:08)
[2024-06-28] MEDS: carvediloL 12.5 MG TAB PO SCH (10:11)
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
[2024-06-28 12:07] LABS: African American GFR (CKD) 6 (>60 ml/min/1.73 sqM); Anion Gap 16 mmol/L; Blood Urea Nitrogen 52 mg/dL (9-20); Calcium 9.4 mg/dL (8.4-10.2); Carbon Dioxide 20 mmol/L (22-30); Chloride 99 mmol/L (98-107); Glucose 131 mg/dL (74-99); Non-African American GFR(CKD) 6 (>60 ml/min/1.73 sqM); Potassium 4.5 mmol/L (3.5-5.1); Sodium 135 mmol/L (137-145)
--- NOTE | 2024-06-28 16:25 | NM ---
EXAMINATION TYPE: NM pul vent and perfuse DATE OF EXAM: 06/28/2024 CLINICAL INDICATION: Male, 63 years old with history of Elevated D-dimer, shortness of breath; COMPARISON: 06/27/2024 TECHNIQUE: Utilizing inhalation of 41.1 mCi Tc 99m DTPA aerosol and intravenous injection of 5 mCi o f Tc 99m MAA, ventilation and perfusion images are acquired post injection in multiple projections. FINDINGS: Normal radiotracer distribution is noted in the lungs. There is no evidence of mismatched defects. IMPRESSION: No evidence for pulmonary embolism. [facility], , 06/28/2024 4:22 PM
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
[2024-06-28] MEDS: FAMOTIDINE 20 MG TAB PO SCH (20:03)
[2024-06-29 09:01] VITALS: PULSE 79; RESP 18
[2024-06-29] MEDS: ONDANSETRON 4 MG/2 ML VIAL IVP PRN (11:41)
--- NOTE | 2024-06-29 11:42 | P.PN ---
Subjective Progress Note Date: 06/29/24 Patient seen in follow-up with end-stage renal disease on hemodialysis with M/W/F schedule. Has an AV fistula in his right arm that is maturing. Additionally has left IJ PermCath. Present to the hospital with shortness of breath and palpitations, and new onset onset A-fib Transitioned off of Cardizem drip onto oral medications per cardiology team, will reassess following dialysis today Objective - Vital Signs Vital signs: Vital Signs Temp 97.9 F 06/29/24 03:32 Pulse 79 06/29/24 09:00 Resp 18 06/29/24 09:00 BP 124/77 06/29/24 09:00 Pulse Ox 100 06/29/24 09:00 FiO2 Intake & Output 06/28/24 06/29/24 06/29/24 18:59 06:59 18:59 Intake Total 927.917 480 0 Balance 927.917 480 0 Weight 106.8 kg Intake: Intake, IV Titration 151.917 0 Amount Diltiazem 125 mg In 151.917 0 Sodium Chloride 0.9% 100 ml @ 5 MG/HR 5 mls/hr IV .Q24H JACKELINE Rx#:[id number] Oral 776 480 Other: # Voids 1 - Exam Patient is awake, comfortable, no acute distress. Heart: S1 and S2 heard Lungs: Bilateral breath sounds are heard Abdomen: Soft and nontender Lower extremities: Trace edema HEALTHCARE OR MEDICAL: grossly intact - Labs CBC & Chem 7: 06/27/24 09:59 06/28/24 11:45 Labs: Abnormal Lab Results - Last 24 Hours (Table) 06/28/24 06/28/24 Range/Units 10:07 11:45 D-Dimer 1.57 H (<0.60) mg/L FEU Sodium 135 L (137-145) mmol/L Carbon Dioxide 20 L (22-30) mmol/L BUN 52 H (9-20) mg/dL Creatinine 8.88 H* (0.66-1.25) mg/dL Glucose 131 H (74-99) mg/dL Assessment and Plan Assessment: #ESRD on hemodialysis M/W/F schedule #A-fib with RVR, maintained on Cardizem drip #CKD mineral bone disease, maintained on Renvela Plan: -Hemodialysis this morning -Stable for discharge from nephrology standpoint following hemodialysis today -Continue regular M/W/F hemodialysis schedule, next appointment being Saturday I have seen and examined the patient with resident and agree with A&P as written.
--- NOTE | 2024-06-29 12:19 | CA ---
Transthoracic Echo Report Name: Brigido Padilla Age: 63 Gender: M : 1960 Exam Date: 06/29/2024 07:58 Exam Location: [facility] Ht (in): 70 Wt (lb): 235 Ordering Physician: Alexus Pedroza Attending/Referring Phys: Yovany GRIMM Staff Physical Therapist Delicia Gardner, YENI Procedure CPT: Indications: atrial fibrillation Cardiac Hx: stent Technical Quality: Technically difficult study Contrast 1: Definity Total Dose (mL): 2 Contrast 2: Total Dose (mL): MEASUREMENTS (Male / Female) Normal Values 2D ECHO LV Diastolic Diameter PLAX 4.5 cm 4.2 - 5.9 / 3.9 - 5.3 cm LV Systolic Diameter PLAX 3.5 cm IVS Diastolic Thickness 1.7 cm 0.6 - 1.0 / 0.6 - 0.9 cm LVPW Diastolic Thickness 1.6 cm 0.6 - 1.0 / 0.6 - 0.9 cm LV Relative Wall Thickness 0.7 RV Internal Dim ED PLAX 3.9 cm LA Systolic Diameter LX 3.9 cm 3.0 - 4.0 / 2.7 - 3.8 cm LV Diastolic Volume MOD BP 109.9 cm??? 67 - 155 / 56 - 104 cm??? LV Systolic Volume MOD BP 35.7 cm??? 22 - 58 / 19 - 49 cm??? LV Ejection Fraction MOD BP 67.5 % >= 55 % LV Cardiac Index MOD BP 2290.4 cm???/min???m??? LV Diastolic Volume MOD 4C 113.6 cm??? LV Systolic Volume MOD 4C 42.2 cm??? LV Ejection Fraction MOD 4C 62.8 % LV Cardiac Index MOD 4C 2206.5 cm???/min???m??? LV Diastolic Length 4C 8.8 cm LV Systolic Length 4C 8.1 cm LV Diastolic Volume MOD 2C 96.7 cm??? LV Systolic Volume MOD 2C 33.2 cm??? LV Ejection Fraction MOD 2C 65.6 % LV Cardiac Index MOD 2C 1961.0 cm???/min???m??? LV Diastolic Length 2C 8.2 cm LV Systolic Length 2C 7.9 cm M-MODE Aortic Root Diameter MM 3.3 cm DOPPLER AV Peak Velocity 120.6 cm/s AV Peak Gradient 5.8 mmHg MV Area PHT 4.7 cm??? TR Peak Velocity 222.4 cm/s TR Peak Gradient 19.8 mmHg Right Ventricular Systolic Press 29.8 mmHg FINDINGS Left Ventricle Left ventricular ejection fraction is estimated at 40-45 %. Left ventricular cavity size normal. Severe concentric left ventricular hypertrophy. Moderately reduced global left ventricular systolic function. Right Ventricle Moderate right ventricular dilatation. Right ventricular systolic pressure within normal limits. Right Atrium Normal right atrial size. No right atrial thrombus or mass seen. Left Atrium Normal left atrial size. No left atrial thrombus or mass present. Mitral Valve Structurally normal mitral valve. Mild mitral regurgitation. Aortic Valve Trileaflet aortic valve. No aortic valve stenosis or regurgitation. Tricuspid Valve Structurally normal tricuspid valve. Mild tricuspid regurgitation. Pulmonic Valve Pulmonic valve not well visualized. Pericardium No pericardial effusion. Aorta Normal size aortic root and proximal ascending aorta. CONCLUSIONS Moderate global hypokinesis with LV systolic dysfunction with an ejection fraction of 40-45% Mild mitral regurgitation Previewed by: Dr. Robin Bright MD (Electronically Signed) Final Date: 29 June 2024 12:18
--- NOTE | 2024-06-29 12:58 | P.PN ---
Subjective Progress Note Date: 06/29/24 HISTORY OF PRESENT ILLNESS: This is a 63-year-old male with a past medical history significant for dilated cardiomyopathy, moderate pulmonary hypertension, coronary artery disease with previous stenting to the proximal LAD, anemia of chronic disease, and renal cancer status post bilateral nephrectomy on hemodialysis Saturday and Saturday. Patient follows in the office with Dr. Rojas. We have been asked to see the patient in consultation for new onset atrial fibrillation. Patient examined at the bedside. Patient states he woke up yesterday morning to let his dog out to go to the bathroom when he noticed he was extremely fatigued and short of breath. He states he was winded walking from 1 room to the next. He denied having any chest pain or pressure. He states that he went back to sleep but noticed he was waking up every 30 minutes to 1 hour short of breath which is not normal for him. He denies having any palpitations. He states that he got up in the morning and put on his Apple Watch and checked his heart rate 3 times. Each time it told him he was in atrial fibrillation. He states on the third time it told him he should get to the emergency room so he decided to come to the hospital for further evaluation. The patient was found to be in A-fib with RVR upon arrival to the ER. He was started on IV Cardizem and IV heparin. The patient denies any known history of atrial fibrillation. At the time of examination this morning he remains in atrial fibrillation with heart rate between [id number]. He does report shortness of breath and dizziness this morning. Denies any chest pain or pressure. DIAGNOSTICS: - EKG reveals A-fib with RVR. - Chest xray negative for acute process - Laboratory data: WBC 9.0. Hemoglobin 11.5. Platelet count 199. Sodium 136. Potassium 5.8. BUN 49. Creatinine 8.51. Troponin negative x 1. TSH 1.850. - Current home cardiac medications include aspirin 81 mg daily, atorvastatin 40 mg at night, Entresto 24-26 mg twice a day, carvedilol 25 mg at night. - Most recent echocardiogram obtained in October 2023 revealed ejection fraction 35 to 40%, mild LVH, mild MR, mild TR mildly increased pulmonary artery systolic pressure. - Cardiac catheterization history: May 2023 revealing mild nonobstructive CAD, patent stent in the mid LAD, nonischemic cardiomyopathy, biventricular failure with elevated LVEDP, wedge pressures and RA pressures and mixed pulmonary hypertension 06/29 Patient seen and examined. Patient hoping to go home. He denies shortness of breath, dizziness or palpitations. Patient remains in atrial fibrillation with controlled rate. Yesterday, he was started on Eliquis and coreg was increased. Echocardiogram reveals EF of 40 to 45%, moderate global hypokinesis, mild mitral digitation.. VQ scan reveals no evidence of pulmonary embolism. PHYSICAL EXAM: VITAL SIGNS: Reviewed. GENERAL: Well-developed in no acute distress. HEENT: Head is normocephalic. Pupils are equal, round. Sclerae anicteric. Mucous membranes of the mouth are moist. Neck supple. No JVD or thyromegaly LUNGS: Respirations even and unlabored. Lungs essentially clear to auscultation bilaterally. HEART: Mildly tachycardic. Irregular rate and rhythm. S1 and S2 heard. ABDOMEN: Soft. Nondistended. Nontender. EXTREMITIES: Normal range of motion. No clubbing or cyanosis. Peripheral pulses intact. No lower extremity edema NEUROLOGIC: Awake and alert. Oriented x 3. ASSESSMENT: Shortness of breath New onset paroxysmal atrial fibrillation with RVR Elevated D-dimer, rule out PE History of coronary artery disease with previous stenting of the proximal LAD Moderate pulmonary hypertension History of dilated cardiomyopathy, EF 35 to 40% History of renal cancer status post bilateral nephrectomy; on hemodialysis Saturday and Saturday Hypertension Hyperlipidemia Anemia of chronic disease PLAN: Continue Eliquis 2.5 mg twice a day Continue carvedilol dosing to BID Continue additional home cardiac medications Continue telemetry monitoring Will consider outpatient LEISA and cardioversion in 4 weeks if patient remains in atrial fibrillation Discontinue Cardizem drip If heart rate is controlled this afternoon, patient is cleared for discharge from cardiology. Discussed with patient that he may need to continue midodrine on his dialysis days. Nurse practitioner note has been reviewed by physician. Signing provider agrees with the documented findings, assessment, and plan of care documented by LUNCH COOK as a scribe. Objective - Vital Signs Vital signs: Vital Signs Temp 97.9 F 06/29/24 03:32 Pulse 79 06/29/24 09:00 Resp 18 06/29/24 09:00 BP 124/77 06/29/24 09:00 Pulse Ox 100 06/29/24 09:00 FiO2 Intake & Output 06/28/24 06/29/24 06/29/24 18:59 06:59 18:59 Intake Total 927.917 480 0 Balance 927.917 480 0 Weight 106.8 kg Intake: Intake, IV Titration 151.917 0 Amount Diltiazem 125 mg In 151.917 0 Sodium Chloride 0.9% 100 ml @ 5 MG/HR 5 mls/hr IV .Q24H JACKELINE Rx#:[id number] Oral 776 480 Other: # Voids 1 - Labs CBC & Chem 7: 06/27/24 09:59 06/28/24 11:45 Labs: Abnormal Lab Results - Last 24 Hours (Table) 06/28/24 Range/Units 11:45 Sodium 135 L (137-145) mmol/L Carbon Dioxide 20 L (22-30) mmol/L BUN 52 H (9-20) mg/dL Creatinine 8.88 H* (0.66-1.25) mg/dL Glucose 131 H (74-99) mg/dL
[2024-06-29 17:00] VITALS: BP 127/76; TEMP 98.1
== END 2024-06-29 16:47 | disposition home or self-care (01) | DRG 308 ==
LOC: EC 08:46 → 3SCARD 12:30
PROVIDERS: ADMIT Hospitalist; ATTEND Hospitalist
PROC: 5A1D70Z Performance of Urinary Filtration, Intermittent, Less than 6 Hours Per Day (ICD-10-PCS; principal; 2024-06-29)
DX: I48.0 Paroxysmal atrial fibrillation (principal); N18.6 End stage renal disease; I13.2 Hypertensive heart and chronic kidney disease with heart failure and with stage 5 chronic kidney disease, or end stage renal disease; D63.1 Anemia in chronic kidney disease; Z90.6 Acquired absence of other parts of urinary tract; E83.9 Disorder of mineral metabolism, unspecified; I27.20 Pulmonary hypertension, unspecified; Z99.2 Dependence on renal dialysis; I50.9 Heart failure, unspecified; I42.0 Dilated cardiomyopathy; I25.10 Atherosclerotic heart disease of native coronary artery without angina pectoris; E78.5 Hyperlipidemia, unspecified; K21.9 Gastro-esophageal reflux disease without esophagitis; Z79.82 Long term (current) use of aspirin; Z79.899 Other long term (current) drug therapy; Z95.5 Presence of coronary angioplasty implant and graft; Z86.73 Personal history of transient ischemic attack (TIA), and cerebral infarction without residual deficits; Z85.54 Personal history of malignant neoplasm of ureter; Z85.51 Personal history of malignant neoplasm of bladder; Z90.5 Acquired absence of kidney; Z92.21 Personal history of antineoplastic chemotherapy
CPT/HCPCS: 36415; 71046; 78582; 80048; 80053; 83735; 84443; 84484; 85025; 85379; 85610; 85730; 90935; 93005; 93306; 96365; 96366; 96368; 96375; 99291

== ENCOUNTER → 2024-07-16 | Outpatient (CLI) | payer MEDICARE ==
--- NOTE | 2024-07-16 16:17 | US ---
EXAMINATION TYPE: US thyroid st tissue head/neck DATE OF EXAM: 07/16/2024 COMPARISON: NONE CLINICAL INDICATION: Male, 63 years old with history of E210 TESTING; Abnormal parathyroid levels, pr esurgical evaluation for parathyroid removal TECHNIQUE: Grayscale and color Doppler imaging of the thyroid gland. FINDINGS: GLAND SIZE: Right Lobe: 4.6 x 1.8 x 1.9 cm Overall Parenchyma: homogeneous Left Lobe: 3.9 x 1.8 x 1.8 cm Overall Parenchyma: homogeneous Isthmus Thickness: 0.5 cm NODULES RIGHT: # of nodules measured on right: 1 1. 1.1 X 0.8 x 0.9 cm, mid lateral, Prior size: No Prior TIRADS Score: 0 TIRADS Category 1: Benign Composition: Cystic or almost completely cystic (0 points). Recommendation: No FNA LEFT: # of nodules measured on left: 0 ISTHMUS: # of nodules measured in the isthmus: 0 Bilateral neck scanned, lymph node noted left neck = 1.1 cm Incidental - bilateral common carotid artery plaque IMPRESSION: No suspicious thyroid nodules. [facility], , 07/16/2024 4:15 PM
== END | disposition home or self-care (01) ==
LOC: RADUSWWP 15:18
PROVIDERS: ATTEND Transplant Surgery
DX: Z01.818 Encounter for other preprocedural examination (principal); E21.0 Primary hyperparathyroidism
CPT/HCPCS: 76536

== ENCOUNTER 2024-07-27 10:28 | Day surgery (SDC) | payer MEDICARE, OTHER ==
[2024-07-22 15:48] VITALS: BMI 34.7
[2024-07-27] MEDS: SODIUM CHLORIDE 0.9% 1,000 ML IV SCH (11:19)
[2024-07-27 11:22] VITALS: RESP 16; TEMP 97.5
[2024-07-27] MEDS: IV FLUID CONTINUATION 1,000 ML IV ONE (11:25)
[2024-07-27 11:40] LABS: Basophils % (A) 0 %; Eosinophils # (A) 0.2 k/uL (0-0.7); Eosinophils % (A) 3 %; HCT 30.6 % (39.0-53.0); HGB 10.1 gm/dL (13.0-17.5); Lymphocytes # (A) 1.2 k/uL (1.0-4.8); Lymphocytes % (A) 14 %; MCH 30.4 pg (25.0-35.0); MCHC 32.9 g/dL (31.0-37.0); MCV 92.4 fL (80.0-100.0); Mean Platelet Volume 8.2; Monocytes # (A) 0.5 k/uL (0-1.0); Monocytes % (A) 6 %; Neutrophils # (A) 6.5 k/uL (1.3-7.7); Neutrophils % (A) 74 %; Platelet Count 158 k/uL (150-450); RBC 3.32 m/uL (4.30-5.90); RDW 14.7 % (11.5-15.5); WBC 8.8 k/uL (3.8-10.6)
[2024-07-27 11:50] LABS: African American GFR (CKD) 7 (>60 ml/min/1.73 sqM); Anion Gap 15 mmol/L; Blood Urea Nitrogen 61 mg/dL (9-20); Carbon Dioxide 25 mmol/L (22-30); Chloride 96 mmol/L (98-107); Glucose 72 mg/dL (74-99); Potassium 4.3 mmol/L (3.5-5.1); Sodium 136 mmol/L (137-145)
[2024-07-27 11:51] LABS: Calcium 9.9 mg/dL (8.4-10.2); Non-African American GFR(CKD) 6 (>60 ml/min/1.73 sqM)
[2024-07-27] MEDS: MIDAZOLAM 2 MG/2 ML VIAL IVP ONE ×2 (12:40→13:22)
[2024-07-27] MEDS: fentaNYL (PF) 50 MCG/1 ML VIAL IVP ONE (12:41)
[2024-07-27] MEDS: LIDOCAINE 1% INJ 10MG/ML (20 ML MDV) SQ ONE (12:43)
[2024-07-27] MEDS: HEPARIN SODIUM,PORCINE 10,000 UNIT in SODIUM CHLORIDE 0.9% 1,000 ML IRRIGATION ONE (12:51)
[2024-07-27] MEDS: IOPAMIDOL-370 100ML BTL INJ ONE (13:22)
--- NOTE | 2024-07-27 13:41 | P.OP ---
Date of Procedure: 07/27/24 Preoperative Diagnosis: End-stage renal disease on hemodialysis Right upper extremity malfunctioning arteriovenous fistula Postoperative Diagnosis: End-stage renal disease Malfunctioning right upper extremity attributes fistula Inflow stenosis greater than 90% Procedure(s) Performed: Ultrasound-guided fistula access Fistulogram with central venogram Percutaneous transluminal balloon angioplasty of the inflow stenosis with a 6 x 40 mm balloon followed by an 8 x 40 mm Impact Admiral Drug-eluting balloon Conscious sedation x 52 minutes Anesthesia: local Surgeon: Ghanshyam Mary Estimated Blood Loss (ml): 5 Pathology: none sent Condition: stable Disposition: PACU Indications for Procedure: 63-year-old gentleman with history of end-stage renal disease on hemodialysis via tunneled hemodialysis catheter has previous right upper extremity brachiocephalic fistula creation presents to the Cir[facility] Super[facility] secondary to failure, malfunctioning fistula with difficult access. He had ultrasound which demonstrated possible inflow stenosis. He presents today for possible balloon angioplasty. Operative Findings: Severe stenosis of the inflow just after the anastomosis measuring greater than 90% Description of Procedure: After written informed consent was obtained the patient all risks benefits competitions were described the patient is brought to the Circulation Supervisor and laid in a supine position with their right arm outstretched on an armboard. The area of the arm was prepped and draped in usual sterile fashion. Utilizing local anesthetic the fistula was accessed under ultrasound guidance and a 6-Scottish sheath was placed. Fistulogram was then obtained demonstrating severe stenosis of the inflow greater than 90%. At that time ultrasound was utilized to access the fistula in a retrograde fashion and a 6 Scottish sheath was placed. 035 Glidewire followed by an angled glide catheter was then utilized to cross the lesion. Wire was then placed into the brachial artery and balloon angioplasty was performed at the proximal aspect of the fistula across the anastomosis with a 6 x 40 mm balloon followed by an 8 x 40 mm drug-eluting Impact Admiral Balloon. Once completed stenosis improved to roughly 20% with brisk thrill and flow noted throughout the fistula. The catheters were then removed and pressure was held for the 4 Scottish and a suture was placed for the 6 Scottish sheath. The patient taught the procedure well and had a palpable throughout the occlusion of the procedure.
--- NOTE | 2024-07-27 13:53 | IR ---
EXAMINATION TYPE: IR fistula/abscess/sinus tract DATE OF EXAM: 07/27/2024 CLINICAL INDICATION: Male, 63 years old with history of Dialysis, 7.2m/11.5DAP, Lt brachial manual pr essure, TECHNIQUE: Fluoroscopy. COMPARISON: None. FINDINGS: Fluoroscopic guidance was provided during procedure left upper stomach fistulogram perform ed by Dr. Mary. A total of 7.2 minutes seconds of fluoroscopic time was utilized during the proce dure and 119 spot images was acquired. TOTAL DAP = 2.00 Gycm2 IMPRESSION: As Above. [facility], , 07/27/2024 1:51 PM
[2024-07-27 14:45] VITALS: BP 154/88; PULSE 74
== END 2024-07-27 14:40 | disposition home or self-care (01) ==
LOC: CATHCVL 10:28
PROVIDERS: ATTEND Surgery
DX: N18.6 End stage renal disease (principal); T82.858A Stenosis of other vascular prosthetic devices, implants and grafts, initial encounter; Z99.2 Dependence on renal dialysis; Z79.899 Other long term (current) drug therapy
CPT/HCPCS: 76937; 36902; 80048; 85025; C1894; C1769 ×3; C2623; C1725; J2250; J1644; J2003; Q9967; J3010

== ENCOUNTER → 2024-09-01 | Outpatient (CLI) | payer MEDICARE, OTHER | END | disposition home or self-care (01) | LOC: LABWHC1 13:42 | PROVIDERS: ATTEND Transplant Surgery | DX: Z53.9 Procedure and treatment not carried out, unspecified reason (principal) ==

== ENCOUNTER 2024-11-17 05:32 | Day surgery (SDC) | payer MEDICARE, OTHER ==
[2024-11-12 16:23] VITALS: BMI 33.2
[2024-11-17 06:44] VITALS: TEMP 97.8
[2024-11-17] MEDS: SODIUM CHLORIDE 0.9% 500 ML 500 ML IV SCH (06:46)
[2024-11-17] MEDS: IV FLUID CONTINUATION 1,000 ML IV ONE (06:46)
[2024-11-17 07:04] LABS: Basophils # (A) 0.07 10*3/uL (0.00-0.10); Basophils % (A) 0.8 %; Eosinophils # (A) 0.26 10*3/uL (0.04-0.35); Eosinophils % (A) 2.9 %; HCT 37.5 % (39.6-50.0); HGB 12.1 g/dL (13.0-17.0); Lymphocytes # (A) 1.39 10*3/uL (0.90-5.00); Lymphocytes % (A) 15.8 %; MCH 31.3 pg (27.0-32.0); MCHC 32.3 g/dL (32.0-37.0); MCV 96.9 fL (80.0-97.0); Monocytes # (A) 0.85 10*3/uL (0.20-1.00); Monocytes % (A) 9.6 %; Neutrophils # (A) 6.18 10*3/uL (1.80-7.70); Neutrophils % (A) 70.1 %; Platelet Count 181 10*3/uL (140-440); RBC 3.87 10*6/uL (4.40-5.60); RDW 16.3 % (11.5-14.5); WBC 8.82 10*3/uL (4.50-10.00)
[2024-11-17 07:13] LABS: African American GFR (CKD) 7 (>60 ml/min/1.73 sqM); Anion Gap 12 mmol/L; Blood Urea Nitrogen 39 mg/dL (9-20); Calcium 9.6 mg/dL (8.4-10.2); Carbon Dioxide 29 mmol/L (22-30); Chloride 100 mmol/L (98-107); Glucose 81 mg/dL (74-99); Non-African American GFR(CKD) 6 (>60 ml/min/1.73 sqM); Sodium 141 mmol/L (137-145)
[2024-11-17 07:22] LABS: Potassium 4.5 mmol/L (3.5-5.1)
[2024-11-17] MEDS: LIDOCAINE 2% (PF) 20 MG/ML 10 ML AMP SQ ONE (07:34)
[2024-11-17] MEDS: fentaNYL (PF) 50 MCG/1 ML VIAL IVP ONE ×5 (07:34→08:07)
[2024-11-17] MEDS: MIDAZOLAM 2 MG/2 ML VIAL IVP ONE ×5 (07:34→08:12)
[2024-11-17] MEDS: IOPAMIDOL-370 100ML BTL INTRATHECA ONE (08:14)
[2024-11-17] MEDS: HEPARIN SODIUM,PORCINE 10,000 UNIT in SODIUM CHLORIDE 0.9% 1,000 ML IRRIGATION ONE (08:14)
--- NOTE | 2024-11-17 08:30 | P.OP ---
Description of Procedure: Preoperative diagnosis: End stage renal disease, malfunctioning right upper extremity arteriovenous fistula with branches Postoperative diagnosis: Same Procedure: Right upper extremity fistulogram with ultrasound guided access and branch ligation Surgeon: Ghanshyam Mary DO Anesthesia : Local Estimated blood loss: Minimal Complications: None Condition: Stable Disposition: Palpable thrill right upper extremity fistula Indications: 63-year-old gentleman with history of end-stage renal disease on hemodialysis via right upper extremity arteriovenous fistula presents to the hospital for elective right upper extremity fistulogram and branch ligation due to recent ultrasound that demonstrated a large branch that was stealing flow from the middle portion of his fistula and therefore making it difficult for access above this area per the dialysis center. Operative narrative: After written informed consent was obtained the patient all risks benefits competitions were described the patient is brought to the [employer] and laid in a supine position with their right arm outstretched on an armboard. The area of the arm was prepped and draped in usual sterile fashion. Utilizing local anesthetic the fistula was accessed under ultrasound guidance and a 6-German sheath was placed. Fistulogram was then obtained demonstrating brisk flow through the fistula without any evidence of stenosis with 1 large branch noted at the middle portion of his fistula. Utilizing ultrasound the branch was located and local anesthetic was then infused overlying this branch and a small incision was created with a 15 blade scalpel. Dissection was then carried down to the venous branch and was dissected free and suture-ligated with 3-0 Vicryl suture in a normal fashion. Fistulogram was then obtained again demonstrating complete resolution of the branch with brisk flow throughout the fistula. Central venogram also demonstrated no evidence of stenosis with brisk flow. Inflow was also assessed by occluding the outflow and no stenosis was noted at the inflow. The incision was then closed with 3-0 Vicryl suture in a buried interrupted fashion. The skin was then cleansed and dressed with glue. The sheath was also removed and suture was placed for hemostasis. Patient tolerated procedure well and was sent to recovery..
--- NOTE | 2024-11-17 08:54 | IR ---
EXAMINATION TYPE: IR fistula/abscess/sinus tract DATE OF EXAM: 11/17/2024 FLUOROSCOPY Dialysis, 7.2m/11.5DAP, Lt brachial manual pressure 88 images are submitted. [facility], , 11/17/2024 8:52 AM
[2024-11-17 09:39] VITALS: RESP 18
[2024-11-17 09:41] VITALS: BP 157/83; PULSE 76
== END 2024-11-17 09:35 | disposition home or self-care (01) ==
LOC: CATHCVL 05:32
PROVIDERS: ATTEND Surgery
DX: N18.6 End stage renal disease (principal); Z99.2 Dependence on renal dialysis
CPT/HCPCS: 80048; 85025; 36901; J2250; J1644; J2003; Q9967; J3010